=== PATIENT | male | born 1985 | race Caucasian/White ===

== ENCOUNTER 2020-09-18 18:06 | Emergency (ER) | payer OTHER ==
[2020-09-18 18:30] VITALS: TEMP 98.6; BMI 36.2
[2020-09-18] MEDS ORDERED: chlordiazePOXIDE HCL 25 MG CAPSULE PO ONE (19:04)
[2020-09-18 19:08] LABS: BASO % 0.7 % (0-2.0); EOS % 0.8 % (0-4.5); HEMATOCRIT 42.9 % (35.4-49); HEMOGLOBIN 14.5 GM/dL (11.7-16.9); LYMPH % 5.7 % (8-40); MCH 36.6 pg (25.7-33.7); MCHC 33.7 g/dl (32.0-35.9); MEAN CELL VOLUME 108.4 fl (80-96); MEAN PLT VOLUME 10.7 fl (7.5-11.1); MONO % 9.3 % (3.8-10.2); NEUT % 83.5 % (42.8-82.8); PLATELET COUNT 106 K/MM3 (134-434); RBC 3.96 M/mm3 (4.00-5.60)
[2020-09-18 19:23] LABS: EPI CELLS 15 /uL (0-25.1); HYALINE CASTS 9 /uL (0-3.1); PH,URINE 6.5 (5.0-8.0); URINE APPEARANCE CLOUDY; URINE BACTERIA 46 /uL (0-1359); URINE BILIRUBIN 1+ (NEGATIVE); URINE COLOR DK YELLOW; URINE GLUCOSE (UA) NEGATIVE (NEGATIVE); URINE KETONE 1+ (NEGATIVE); URINE LEUK ESTERASE TRACE (NEGATIVE); URINE NITRITE NEGATIVE (NEGATIVE); URINE PROTEIN 3+ (NEGATIVE); URINE RBC 13 /uL (0-23.9); URINE WBC 4 /uL (0-25.8)
[2020-09-18 19:26] LABS: CHLORIDE 106 mmol/L (98-107); POTASSIUM 3.9 mmol/L (3.5-5.1); SODIUM 137 mmol/L (136-145)
[2020-09-18 19:31] LABS: ALBUMIN 3.8 g/dl (3.4-5.0); ANION GAP 8 MMOL/L (8-16); CALCIUM 9.3 mg/dL (8.5-10.1); CO2 23 mmol/L (21-32); GLUCOSE,RANDOM 143 mg/dL (74-106); LIPASE 256 U/L (73-393)
[2020-09-18 19:32] LABS: BLOOD UREA NITROGEN 5.7 mg/dL (7-18); MAGNESIUM 2.1 mg/dL (1.8-2.4)
[2020-09-18 19:34] LABS: CREATININE 0.6 mg/dL (0.55-1.3); SGOT/AST 90 U/L (15-37); SGPT/ALT 51 U/L (13-61)
[2020-09-18 19:36] LABS: BILIRUBIN,TOTAL 2.2 mg/dL (0.2-1); TOT PROT 7.5 g/dl (6.4-8.2)
[2020-09-18 19:37] LABS: ALK PHOS 128 U/L (45-117)
[2020-09-18] MEDS ORDERED: chlordiazePOXIDE HCL 25 MG CAPSULE ONE (19:57)
[2020-09-18 20:14] LABS: ANISOCYTOSIS 1+; MACROCYTOSIS 0; PLATELET ESTIMATE DECREASED
[2020-09-18 20:44] LABS: COCAINE, UR NEGATIVE ng/ml (CUTOFF=300); URINE AMPHETAMINES NEGATIVE ng/ml (CUTOFF=500); URINE BARBITURATES NEGATIVE ng/ml (CUTOFF=200)
[2020-09-18 20:45] LABS: PHENCYCLIDINE,URINE NEGATIVE ng/ml (CUTOFF=25)
[2020-09-18 20:52] LABS: METHADONE, UR NEGATIVE ng/ml (CUTOFF=300); OPIATES, URI NEGATIVE ng/ml (CUTOFF=300); URINE BENZODIAZEPINES NEGATIVE ng/ml (CUTOFF=200)
[2020-09-18 21:33] VITALS: BP 129/86; PULSE 90
== END 2020-09-18 21:33 | disposition home or self-care (01) ==
LOC: JER 18:06
DX: F10.230 Alcohol dependence with withdrawal, uncomplicated (principal)
CPT/HCPCS: 36415; 70450-TC; 80053; 80307; 81003; 82550; 82553; 82962; 83690; 83735; 84484; 85025; 87086; 93005; 93010; 99283-25

== ENCOUNTER 2020-12-24 17:46 | Emergency (ER) | payer OTHER ==
[2020-12-24 18:13] VITALS: BMI 25.6
[2020-12-24] MEDS ORDERED: DIPHTH,PERTUSS(ACELL),TET 0.5 ML DISP.SYRIN IM ONE ×2 (20:26→20:40)
[2020-12-24 22:30] VITALS: BP 131/81; PULSE 74; TEMP 97.6
== END 2020-12-25 00:22 | disposition home or self-care (01) ==
LOC: JER 17:46
PROC: 3E0234Z Introduction of Serum, Toxoid and Vaccine into Muscle, Percutaneous Approach (ICD-10-PCS; principal; 2020-12-24)
DX: H11.32 Conjunctival hemorrhage, left eye (principal)
CPT/HCPCS: 70450-TC; 70486-TC; 72125-TC; 73030-TC-LT-FY; 73060-TC-LT-FY; 73070-TC-LT-FY; 73090-TC-LT-FY; 73130-TC-LT-FY; 90715; 99285-25

== ENCOUNTER 2021-05-09 22:56 | Emergency (ER) | payer OTHER ==
[2021-05-09 23:05] VITALS: PULSE 85; TEMP 98.7; BMI 25.6
[2021-05-10 00:30] LABS: BASO % 1.7 % (0-2.0); EOS % 1.7 % (0-4.5); HEMATOCRIT 38.4 % (35.4-49); HEMOGLOBIN 13.2 GM/dL (11.7-16.9); MCH 36.7 pg (25.7-33.7); MCHC 34.4 g/dl (32.0-35.9); MEAN CELL VOLUME 106.7 fl (80-96); MEAN PLT VOLUME 9.5 fl (7.5-11.1); MONO % 14.9 % (3.8-10.2); NEUT % 56.7 % (42.8-82.8); PLATELET COUNT 109 10^3/uL (134-434); RDW 14.9 % (11.9-15.9); WHITE BLOOD COUNT 5.3 K/mm3 (4.0-10.0)
[2021-05-10 00:37] LABS: INR 1.1 (0.83-1.09); PROTHROMBIN TIME (PATIENT) 13.3 SEC (9.7-13.0)
[2021-05-10 00:55] LABS: CALCIUM 8.6 mg/dL (8.5-10.1)
[2021-05-10 00:56] LABS: ALBUMIN 3.8 g/dl (3.4-5.0); BLOOD UREA NITROGEN 8.5 mg/dL (7-18)
[2021-05-10 01:00] LABS: CREATININE 0.5 mg/dL (0.55-1.3)
[2021-05-10] MEDS ORDERED: PANTOPRAZOLE SODIUM 40 MG VIAL IVPUSH ONE (01:00)
[2021-05-10 01:01] LABS: BILIRUBIN,TOTAL 1.1 mg/dL (0.2-1); TOT PROT 7.4 g/dl (6.4-8.2)
[2021-05-10] MEDS ORDERED: PANTOPRAZOLE SODIUM 40 MG VIAL ONE (01:04)
[2021-05-10] MEDS ORDERED: MAG HYDROX/AL HYDROX/SIMETH 30 ML UNIT-DOSE CUP PO ONE (01:16)
[2021-05-10] MEDS ORDERED: MAG HYDROX/AL HYDROX/SIMETH 30 ML UNIT-DOSE CUP ONE (01:23)
[2021-05-10] MEDS ORDERED: SUCRALFATE 1 GM TABLET (FP) PO SCH (01:30)
[2021-05-10 01:31] VITALS: BP 124/89
[2021-05-10 01:48] LABS: URINE APPEARANCE CLEAR; URINE BILIRUBIN 1+ (NEGATIVE); URINE COLOR DK YELLOW; URINE GLUCOSE (UA) NEGATIVE (NEGATIVE); URINE KETONE TRACE (NEGATIVE); URINE LEUK ESTERASE NEGATIVE (NEGATIVE); URINE NITRITE NEGATIVE (NEGATIVE); URINE PROTEIN NEGATIVE (NEGATIVE)
[2021-05-10 02:19] LABS: ANISOCYTOSIS 0; MACROCYTOSIS 1+; PLATELET ESTIMATE DECREASED
== END 2021-05-10 01:31 | disposition home or self-care (01) ==
LOC: JER 22:56
PROC: 3E033GC Introduction of Other Therapeutic Substance into Peripheral Vein, Percutaneous Approach (ICD-10-PCS; principal; 2021-05-09)
DX: K92.0 Hematemesis (principal); K92.1 Melena
CPT/HCPCS: 36415; 80053; 81003; 85025; 85610; 85730; 87086; 93005; 93010; 99285-25

== ENCOUNTER 2021-08-17 10:11 | Inpatient (IN) | payer OTHER ==
[2021-08-17] MEDS ORDERED: PANTOPRAZOLE SODIUM 40 MG VIAL IVPUSH ONE (10:35)
[2021-08-17] MEDS ORDERED: SODIUM CHLORIDE 1,000 ML IV STA (10:35)
[2021-08-17 11:12] LABS: BASO % 0.6 % (0-2.0); EOS % 0.2 % (0-4.5); HEMATOCRIT 38.4 % (35.4-49); HEMOGLOBIN 13.4 GM/dL (11.7-16.9); LYMPH % 20.6 % (8-40); MCH 37.5 pg (25.7-33.7); MCHC 34.9 g/dl (32.0-35.9); MEAN CELL VOLUME 107.7 fl (80-96); MEAN PLT VOLUME 9.7 fl (7.5-11.1); MONO % 10.6 % (3.8-10.2); PLATELET COUNT 155 10^3/uL (134-434); RBC 3.56 M/mm3 (4.00-5.60); RDW 14.3 % (11.9-15.9); WHITE BLOOD COUNT 7.5 K/mm3 (4.0-10.0)
[2021-08-17 11:20] LABS: INR 1.24 (0.83-1.09); PROTHROMBIN TIME (PATIENT) 13.9 SEC (9.7-13.0)
[2021-08-17] MEDS: PANTOPRAZOLE SODIUM 80 MG in SODIUM CHLORIDE 100 ML IVPB SCH ×2 (11:26→21:15)
[2021-08-17 11:35] LABS: ALBUMIN 3.6 g/dl (3.4-5.0); BLOOD UREA NITROGEN 16.8 mg/dL (7-18); CALCIUM 8.9 mg/dL (8.5-10.1)
[2021-08-17 11:38] LABS: CREATININE 0.6 mg/dL (0.55-1.3)
[2021-08-17 11:40] LABS: BILIRUBIN,TOTAL 1.8 mg/dL (0.2-1)
[2021-08-17] MEDS ORDERED: OCTREOTIDE ACETATE 50 MCG/1 ML - 1 ML VIAL IVPUSH ONE (11:46)
[2021-08-17 11:47] LABS: TOT PROT 7.3 g/dl (6.4-8.2)
[2021-08-17] MEDS ORDERED: CEFTRIAXONE 1,000 MG in DEXTROSE 5%-WATER - 50 ML IVPB ONE (11:47)
[2021-08-17 11:52] LABS: LACTIC ACID 3.5 mmol/L (0.4-2.0)
[2021-08-17] MEDS ORDERED: SODIUM CHLORIDE 0.9% 1000 ML INFUS.BAG IV ONE (12:03)
[2021-08-17 12:15] LABS: ANISOCYTOSIS 0; MACROCYTOSIS 0; PLATELET ESTIMATE DECREASED; TEAR DROP CELLS 1+
[2021-08-17] MEDS ORDERED: OCTREOTIDE ACETATE 100 MCG/1 ML ONE (12:22)
[2021-08-17] MEDS ORDERED: CEFTRIAXONE 1 GM/50 ML BAG ONE (12:22)
[2021-08-17] MEDS: OCTREOTIDE ACETATE 200 MCG, OCTREOTIDE ACETATE 1,000 MCG in DEXTROSE 5%-WATER - 496 ML IVPB SCH (12:36)
[2021-08-17 15:37] LABS: BASO % 0.4 % (0-2.0); EOS % 0.1 % (0-4.5); HEMATOCRIT 32.1 % (35.4-49); HEMOGLOBIN 11.2 GM/dL (11.7-16.9); LYMPH % 13.4 % (8-40); MCH 37.3 pg (25.7-33.7); MCHC 34.7 g/dl (32.0-35.9); MEAN CELL VOLUME 107.5 fl (80-96); MEAN PLT VOLUME 10.1 fl (7.5-11.1); MONO % 7.3 % (3.8-10.2); NEUT % 78.8 % (42.8-82.8); PLATELET COUNT 113 10^3/uL (134-434); RBC 2.99 M/mm3 (4.00-5.60); RDW 14.2 % (11.9-15.9)
[2021-08-17] MEDS ORDERED: ONDANSETRON 4 MG/2 ML VIAL ONE (16:18)
[2021-08-17] MEDS ORDERED: ONDANSETRON 4 MG/2 ML VIAL IVPUSH PRN (16:30)
[2021-08-17] MEDS ORDERED: LORazepam 2 MG/ML SDV VIAL IVPUSH PRN (17:17)
[2021-08-17] MEDS: LACTATED RINGERS SOLUTION 1,000 ML/1,000 ML INFUS.BAG IV SCH (19:03)
[2021-08-17 21:54] LABS: HEMATOCRIT 30.6 % (35.4-49); HEMOGLOBIN 10.8 GM/dL (11.7-16.9); MCHC 35.5 g/dl (32.0-35.9); MEAN CELL VOLUME 104.3 fl (80-96); MEAN PLT VOLUME 9.2 fl (7.5-11.1); PLATELET COUNT 111 10^3/uL (134-434); RBC 2.93 M/mm3 (4.00-5.60); RDW 13.8 % (11.9-15.9)
[2021-08-17 22:38] LABS: LACTIC ACID 2.3 mmol/L (0.4-2.0)
[2021-08-18] MEDS: PANTOPRAZOLE SODIUM 80 MG in SODIUM CHLORIDE 100 ML IVPB SCH (06:06)
[2021-08-18] MEDS: LACTATED RINGERS SOLUTION 1,000 ML/1,000 ML INFUS.BAG IV SCH ×2 (06:07→17:29)
[2021-08-18] MEDS ORDERED: cefTRIAXone SODIUM 1 GM VIAL ONE (09:06)
[2021-08-18] MEDS ORDERED: DEXTROSE 5%-WATER - 50 ML IVPB ONE (09:06)
[2021-08-18] MEDS: CEFTRIAXONE 1 GM in DEXTROSE 5%-WATER - 50 ML IVPB SCH (09:28)
[2021-08-18] MEDS ORDERED: PT OWN MED DRAWER 7, Y5N ONE (09:50)
[2021-08-18] MEDS ORDERED: FLU VACC QS2021-22(6MOS UP)/PF 60 MCG/0.5 ML SYRINGE IM ONE (10:00)
[2021-08-18] MEDS ORDERED: DEXMEDETOMIDINE HCL 200 MCG/2 ML IVPB ONE (10:11)
[2021-08-18] MEDS ORDERED: MIDAZOLAM HCL 2 MG/2 ML SINGLE DOSE VIAL ONE (10:53)
[2021-08-18] MEDS ORDERED: KETAMINE HCL 500 MG/10 ML VIAL ONE (10:54)
[2021-08-18] MEDS: OCTREOTIDE ACETATE 200 MCG, OCTREOTIDE ACETATE 1,000 MCG in DEXTROSE 5%-WATER - 496 ML IVPB SCH (12:30)
[2021-08-18 12:53] LABS: BASO % 0.7 % (0-2.0); EOS % 3.6 % (0-4.5); HEMATOCRIT 30.1 % (35.4-49); HEMOGLOBIN 10.4 GM/dL (11.7-16.9); LYMPH % 33.5 % (8-40); MCH 37.1 pg (25.7-33.7); MCHC 34.7 g/dl (32.0-35.9); MEAN CELL VOLUME 106.9 fl (80-96); MEAN PLT VOLUME 9.5 fl (7.5-11.1); MONO % 13.4 % (3.8-10.2); NEUT % 48.8 % (42.8-82.8); PLATELET COUNT 99 10^3/uL (134-434); RBC 2.82 M/mm3 (4.00-5.60); RDW 13.8 % (11.9-15.9)
[2021-08-18 13:01] LABS: INR 1.25 (0.83-1.09); PROTHROMBIN TIME (PATIENT) 14.6 SEC (9.7-13.0)
[2021-08-18 13:16] LABS: CHLORIDE 108 mmol/L (98-107); SODIUM 139 mmol/L (136-145)
[2021-08-18 13:19] LABS: ANION GAP 8 MMOL/L (8-16); BLOOD UREA NITROGEN 10.6 mg/dL (7-18); CALCIUM 7.8 mg/dL (8.5-10.1); CO2 23 mmol/L (21-32); GLUCOSE,RANDOM 105 mg/dL (74-106)
[2021-08-18 13:22] LABS: BILIRUBIN,DIRECT 0.6 mg/dL (0.0-0.2); CREATININE 0.5 mg/dL (0.55-1.3); IRON SERUM 277 ug/dL (50-175); SGPT/ALT 36 U/L (13-61); TOTAL IRON BINDING CAPACITY 279 ug/dL (250-450)
[2021-08-18 13:23] LABS: BILIRUBIN,TOTAL 2.1 mg/dL (0.2-1); SGOT/AST 55 U/L (15-37)
[2021-08-18 13:24] LABS: TOT PROT 5.6 g/dl (6.4-8.2)
[2021-08-18 13:25] LABS: ALBUMIN 2.5 g/dl (3.4-5.0); ALK PHOS 80 U/L (45-117)
[2021-08-19 06:23] LABS: BASO % 0.8 % (0-2.0); EOS % 2.5 % (0-4.5); HEMATOCRIT 32.9 % (35.4-49); HEMOGLOBIN 11.4 GM/dL (11.7-16.9); LYMPH % 17.6 % (8-40); MCH 37.4 pg (25.7-33.7); MCHC 34.8 g/dl (32.0-35.9); MEAN CELL VOLUME 107.5 fl (80-96); MEAN PLT VOLUME 9.8 fl (7.5-11.1); MONO % 9.3 % (3.8-10.2); NEUT % 69.8 % (42.8-82.8); PLATELET COUNT 105 10^3/uL (134-434); RBC 3.06 M/mm3 (4.00-5.60); RDW 13.9 % (11.9-15.9); WHITE BLOOD COUNT 5.6 K/mm3 (4.0-10.0)
[2021-08-19 06:43] LABS: ALBUMIN 2.8 g/dl (3.4-5.0); CALCIUM 8.9 mg/dL (8.5-10.1)
[2021-08-19 06:44] LABS: BLOOD UREA NITROGEN 9.8 mg/dL (7-18); MAGNESIUM 1.6 mg/dL (1.8-2.4)
[2021-08-19 06:47] LABS: CREATININE 0.6 mg/dL (0.55-1.3)
[2021-08-19 06:48] LABS: BILIRUBIN,TOTAL 1.4 mg/dL (0.2-1); TOT PROT 6.2 g/dl (6.4-8.2)
[2021-08-19] MEDS ORDERED: cefTRIAXone SODIUM 1 GM VIAL ONE (08:23)
[2021-08-19] MEDS ORDERED: DEXTROSE 5%-WATER - 50 ML IVPB ONE (08:24)
[2021-08-19] MEDS: PANTOPRAZOLE SODIUM 40 MG VIAL IVPUSH SCH (09:20)
[2021-08-19] MEDS: CEFTRIAXONE 1 GM in DEXTROSE 5%-WATER - 50 ML IVPB SCH (09:20)
[2021-08-19] MEDS: NADOLOL 20 MG TABLET (FP) PO SCH (09:20)
[2021-08-19 12:17] VITALS: BMI 28.8
[2021-08-19] MEDS ORDERED: PT OWN MED DRAWER 7, Y5N ONE ×2 (15:22→15:34)
[2021-08-20] MEDS ORDERED: MAGNESIUM OXIDE 400 MG TABLET (FP) PO ONE (09:06)
[2021-08-20] MEDS: NADOLOL 20 MG TABLET (FP) PO SCH (10:17)
[2021-08-20] MEDS: PANTOPRAZOLE SODIUM 40 MG VIAL IVPUSH SCH (10:18)
[2021-08-20 13:37] LABS: BASO % 0.4 % (0-2.0); EOS % 4.6 % (0-4.5); HEMATOCRIT 35.9 % (35.4-49); HEMOGLOBIN 12.3 GM/dL (11.7-16.9); MCH 37.1 pg (25.7-33.7); MCHC 34.4 g/dl (32.0-35.9); MEAN PLT VOLUME 9.7 fl (7.5-11.1); MONO % 12.2 % (3.8-10.2); NEUT % 64.8 % (42.8-82.8); PLATELET COUNT 153 10^3/uL (134-434); RBC 3.32 M/mm3 (4.00-5.60); RDW 14.1 % (11.9-15.9); WHITE BLOOD COUNT 7.2 K/mm3 (4.0-10.0)
[2021-08-20 13:59] LABS: BLOOD UREA NITROGEN 12.1 mg/dL (7-18); CALCIUM 8.7 mg/dL (8.5-10.1)
[2021-08-20 14:02] LABS: CREATININE 0.6 mg/dL (0.55-1.3)
[2021-08-20 14:04] LABS: BILIRUBIN,TOTAL 1.2 mg/dL (0.2-1); TOT PROT 6.7 g/dl (6.4-8.2)
[2021-08-20 15:06] LABS: ANISOCYTOSIS 1+; MACROCYTOSIS 1+; PLATELET ESTIMATE DECREASED
[2021-08-21 06:57] LABS: BASO % 1.6 % (0-2.0); EOS % 3.9 % (0-4.5); HEMATOCRIT 35.4 % (35.4-49); HEMOGLOBIN 12.6 GM/dL (11.7-16.9); LYMPH % 26.9 % (8-40); MCH 37.4 pg (25.7-33.7); MCHC 35.5 g/dl (32.0-35.9); MEAN CELL VOLUME 105.1 fl (80-96); MEAN PLT VOLUME 9.4 fl (7.5-11.1); MONO % 11.1 % (3.8-10.2); NEUT % 56.5 % (42.8-82.8); PLATELET COUNT 156 10^3/uL (134-434); RBC 3.36 M/mm3 (4.00-5.60); WHITE BLOOD COUNT 7.1 K/mm3 (4.0-10.0)
[2021-08-21 07:23] LABS: CALCIUM 8.6 mg/dL (8.5-10.1)
[2021-08-21 07:24] LABS: ALBUMIN 3.1 g/dl (3.4-5.0); BLOOD UREA NITROGEN 10.8 mg/dL (7-18); MAGNESIUM 2.1 mg/dL (1.8-2.4)
[2021-08-21 07:27] LABS: CREATININE 0.6 mg/dL (0.55-1.3)
[2021-08-21 07:28] LABS: TOT PROT 6.7 g/dl (6.4-8.2)
[2021-08-21 07:30] LABS: BILIRUBIN,TOTAL 1.4 mg/dL (0.2-1)
[2021-08-21] MEDS ORDERED: PT OWN MED DRAWER 7, Y5N ONE (09:43)
[2021-08-21] MEDS: NADOLOL 20 MG TABLET (FP) PO SCH (09:45)
[2021-08-21] MEDS: PANTOPRAZOLE SODIUM 40 MG VIAL IVPUSH SCH (09:50)
[2021-08-21 13:22] VITALS: BP 110/68; PULSE 69; TEMP 98
== END 2021-08-21 16:41 | disposition home or self-care (01) | DRG 242 ==
LOC: JER 10:11 → JERBED 16:04 → J4S 20:21 → JICU 08-18 12:31
PROVIDERS: ADMIT Internal Medicine; ATTEND Nurse Practitioner Family
PROC: 06L38CZ Occlusion of Esophageal Vein with Extraluminal Device, Via Natural or Artificial Opening Endoscopic (ICD-10-PCS; principal; 2021-08-18 10:34)
DX: I85.01 Esophageal varices with bleeding (principal); E87.2 Acidosis; K70.30 Alcoholic cirrhosis of liver without ascites; K92.0 Hematemesis; D53.9 Nutritional anemia, unspecified; F10.20 Alcohol dependence, uncomplicated; K21.9 Gastro-esophageal reflux disease without esophagitis; R74.01 Elevation of levels of liver transaminase levels; A63.0 Anogenital (venereal) warts; R63.0 Anorexia
CPT/HCPCS: 36415; 71045-TC-FY; 76700-TC; 80048; 80053; 80076; 82105; 82140; 82272; 82607; 82728; 82746; 83540; 83550; 83605; 83690; 83735; 85025; 85027; 85610; 86140; 86704; 86803; 86850; 86900; 86901; 86922; 87340; 87517; 90686; 93005; 93010; 93306-TC; 99285-25; C9803; G0008; U0003; U0005

== ENCOUNTER 2022-05-08 15:47 | Emergency (ER) | payer OTHER ==
[2022-05-08 16:13] VITALS: BP 106/67; PULSE 97; TEMP 98.2; BMI 37.8
[2022-05-08] MEDS ORDERED: methylPREDNISolone NA SUCC 125 MG/2 ML VIAL IVPUSH ONE (20:01)
[2022-05-08] MEDS ORDERED: ALBUTEROL SO4 2.5/IPRATROPIUM 0.5 INH SOL 3 ML VIAL.NEB. NEB ONE (20:07)
[2022-05-08] MEDS ORDERED: methylPREDNISolone NA SUCC 125 MG/2 ML VIAL ONE (20:07)
[2022-05-08] MEDS: ALBUTEROL SO4 2.5/IPRATROPIUM 0.5 INH SOL 3 ML VIAL.NEB. NEB SCH ×3 (20:20→20:50)
[2022-05-08 20:40] LABS: BASO % 0.8 % (0-2.0); EOS % 1.2 % (0-4.5); HEMATOCRIT 45.7 % (35.4-49); HEMOGLOBIN 15.5 GM/dL (11.7-16.9); LYMPH % 41.8 % (8-40); MCH 33.2 pg (25.7-33.7); MEAN CELL VOLUME 97.7 fl (80-96); MEAN PLT VOLUME 9.6 fl (7.5-11.1); MONO % 11.6 % (3.8-10.2); NEUT % 44.6 % (42.8-82.8); PLATELET COUNT 135 10^3/uL (134-434); RBC 4.68 M/mm3 (4.00-5.60); RDW 18.2 % (11.9-15.9); WHITE BLOOD COUNT 5.7 K/mm3 (4.0-10.0)
[2022-05-08 20:55] LABS: ALBUMIN 4.1 g/dl (3.4-5.0); CALCIUM 8.6 mg/dL (8.5-10.1)
[2022-05-08 20:58] LABS: CREATININE 0.6 mg/dL (0.55-1.3)
[2022-05-08 21:00] LABS: BILIRUBIN,TOTAL 1.2 mg/dL (0.2-1); TOT PROT 8.1 g/dl (6.4-8.2)
== END 2022-05-08 23:30 | disposition home or self-care (01) ==
LOC: JER 15:47
PROC: 3E033GC Introduction of Other Therapeutic Substance into Peripheral Vein, Percutaneous Approach (ICD-10-PCS; principal; 2022-05-08)
PROC: 3E0F7GC Introduction of Other Therapeutic Substance into Respiratory Tract, Via Natural or Artificial Opening (ICD-10-PCS; 2022-05-08)
DX: J45.20 Mild intermittent asthma, uncomplicated (principal)
CPT/HCPCS: 36415; 71046-TC-FY; 80053; 84484; 85025; 93005; 93010; 99285-25

== ENCOUNTER 2022-12-01 10:55 | Inpatient (IN) | payer OTHER ==
[2022-12-01 11:04] VITALS: BMI 27.4
[2022-12-01] MEDS ORDERED: PANTOPRAZOLE SODIUM 40 MG VIAL IVPUSH ONE (11:42)
[2022-12-01] MEDS ORDERED: CEFTRIAXONE 1,000 MG in DEXTROSE 5%-WATER - 50 ML IVPB ONE (11:43)
[2022-12-01] MEDS ORDERED: PANTOPRAZOLE SODIUM 80 MG/200 ML BAG IVPB ONE (12:14)
[2022-12-01] MEDS ORDERED: CEFTRIAXONE 1 GM/50 ML BAG ONE (12:14)
[2022-12-01] MEDS ORDERED: PANTOPRAZOLE SODIUM 40 MG VIAL ONE (12:19)
[2022-12-01] MEDS ORDERED: OCTREOTIDE ACETATE 100 MCG/1 ML ONE (12:24)
[2022-12-01 12:29] LABS: HEMATOCRIT 42.3 % (35.4-49); HEMOGLOBIN 14.5 GM/dL (11.7-16.9); LYMPH % 15.4 % (8-40); MCH 35.5 pg (25.7-33.7); MCHC 34.3 g/dl (32.0-35.9); MEAN CELL VOLUME 103.6 fl (80-96); MONO % 7.6 % (3.8-10.2); PLATELET COUNT 129 10^3/uL (134-434); RBC 4.08 M/mm3 (4.00-5.60); RDW 14.9 % (11.9-15.9); WHITE BLOOD COUNT 5.4 K/mm3 (4.0-10.0)
[2022-12-01] MEDS ORDERED: OCTREOTIDE ACETATE 200 MCG, OCTREOTIDE ACETATE 1,000 MCG in DEXTROSE 5%-WATER - 496 ML IVPB SCH (12:30)
[2022-12-01 12:52] LABS: INR 1.29 (0.83-1.09); PROTHROMBIN TIME (PATIENT) 14.9 SEC (9.7-13.0)
[2022-12-01 12:55] LABS: ACTIVATED PTT 29.8 SECONDS (25.2-36.5)
[2022-12-01 13:03] LABS: CALCIUM 8.8 mg/dL (8.5-10.1)
[2022-12-01 13:04] LABS: ALBUMIN 3.6 g/dl (3.4-5.0); MAGNESIUM 1.5 mg/dL (1.8-2.4)
[2022-12-01 13:07] LABS: CREATININE 0.6 mg/dL (0.55-1.3)
[2022-12-01 13:08] LABS: BILIRUBIN,TOTAL 1.4 mg/dL (0.2-1); TOT PROT 7.2 g/dl (6.4-8.2)
[2022-12-01 15:50] LABS: BASO % 0.7 % (0-2.0); HEMATOCRIT 40.2 % (35.4-49); HEMOGLOBIN 13.8 GM/dL (11.7-16.9); MCH 35.6 pg (25.7-33.7); MCHC 34.4 g/dl (32.0-35.9); MEAN CELL VOLUME 103.7 fl (80-96); MEAN PLT VOLUME 9.9 fl (7.5-11.1); MONO % 12.6 % (3.8-10.2); NEUT % 77.7 % (42.8-82.8); PLATELET COUNT 120 10^3/uL (134-434); RBC 3.87 M/mm3 (4.00-5.60); WHITE BLOOD COUNT 8.7 K/mm3 (4.0-10.0)
[2022-12-01] MEDS ORDERED: ONDANSETRON 4 MG/2 ML VIAL IVPUSH PRN ×2 (16:40→17:46)
[2022-12-01] MEDS ORDERED: LORazepam 2 MG/ML SDV VIAL IVPUSH PRN ×3 (16:47→16:49)
[2022-12-01] MEDS ORDERED: PANTOPRAZOLE SODIUM 80 MG in SODIUM CHLORIDE 100 ML IVPB SCH (17:00)
[2022-12-01] MEDS ORDERED: PROMETHAZINE HCL 25 MG/1 ML VIAL IVPB PRN (17:46)
[2022-12-01] MEDS ORDERED: LACTATED RINGERS SOLUTION 1,000 ML IV SCH ×2 (18:00→18:45)
[2022-12-01] MEDS: MUPIROCIN 2% TOPICAL OINTMENT FOR DECOLONIZATION NS SCH (21:29)
[2022-12-01] MEDS: THIAMINE HCL 200 MG/2 ML VIAL IVPB SCH (21:29)
[2022-12-01] MEDS: CHLORHEXIDINE GLUCONATE 4% CLEANSER FOR DECOLONIZATION TP SCH (21:30)
[2022-12-01] MEDS: PANTOPRAZOLE SODIUM 40 MG VIAL IVPUSH SCH (21:30)
[2022-12-02] MEDS: THIAMINE HCL 200 MG/2 ML VIAL IVPB SCH (05:36)
[2022-12-02 07:18] LABS: HEMATOCRIT 39.1 % (35.4-49); HEMOGLOBIN 13.5 GM/dL (11.7-16.9); MCH 35.9 pg (25.7-33.7); MCHC 34.6 g/dl (32.0-35.9); MEAN CELL VOLUME 103.7 fl (80-96); MEAN PLT VOLUME 10.3 fl (7.5-11.1); PLATELET COUNT 97 10^3/uL (134-434); RBC 3.77 M/mm3 (4.00-5.60); RDW 14.3 % (11.9-15.9); WHITE BLOOD COUNT 6.7 K/mm3 (4.0-10.0)
[2022-12-02 07:28] LABS: INR 1.33 (0.83-1.09); PROTHROMBIN TIME (PATIENT) 15.4 SEC (9.7-13.0)
[2022-12-02 07:30] LABS: ACTIVATED PTT 30.9 SECONDS (25.2-36.5)
[2022-12-02 07:37] LABS: ALBUMIN 3.3 g/dl (3.4-5.0); BLOOD UREA NITROGEN 9.6 mg/dL (7-18); MAGNESIUM 1.8 mg/dL (1.8-2.4)
[2022-12-02 07:40] LABS: CREATININE 0.6 mg/dL (0.55-1.3); PHOSPHOROUS 3.8 mg/dL (2.5-4.9)
[2022-12-02 07:42] LABS: BILIRUBIN,TOTAL 2.5 mg/dL (0.2-1); TOT PROT 6.7 g/dl (6.4-8.2)
[2022-12-02] MEDS: MUPIROCIN 2% TOPICAL OINTMENT FOR DECOLONIZATION NS SCH ×2 (09:23→23:25)
[2022-12-02] MEDS: PANTOPRAZOLE SODIUM 40 MG VIAL IVPUSH SCH (09:23)
[2022-12-02] MEDS ORDERED: CEFTRIAXONE 1 GM in DEXTROSE 5%-WATER - 50 ML IVPB SCH (10:00)
[2022-12-02] MEDS ORDERED: LORazepam 2 MG TABLET PO PRN (10:51)
[2022-12-02] MEDS ORDERED: LORazepam 1 MG TABLET PO PRN (10:52)
[2022-12-02] MEDS ORDERED: NADOLOL 20 MG TABLET (FP) PO SCH (11:00)
[2022-12-02] MEDS: NADOLOL 20 MG TABLET (FP) PO SCH (11:57)
[2022-12-02] MEDS: FOLIC ACID 5 MG/1 ML SQ SCH (11:57)
[2022-12-02] MEDS: CHLORHEXIDINE GLUCONATE 4% CLEANSER FOR DECOLONIZATION TP SCH (23:25)
[2022-12-03 09:18] LABS: HEMATOCRIT 42.7 % (35.4-49); HEMOGLOBIN 14.6 GM/dL (11.7-16.9); MCH 35.7 pg (25.7-33.7); MCHC 34.1 g/dl (32.0-35.9); MEAN CELL VOLUME 104.7 fl (80-96); MEAN PLT VOLUME 10.8 fl (7.5-11.1); PLATELET COUNT 109 10^3/uL (134-434); RBC 4.08 M/mm3 (4.00-5.60); RDW 14.4 % (11.9-15.9); WHITE BLOOD COUNT 5.1 K/mm3 (4.0-10.0)
[2022-12-03 09:56] LABS: ALBUMIN 3.4 g/dl (3.4-5.0); CALCIUM 8.9 mg/dL (8.5-10.1)
[2022-12-03 09:58] LABS: BLOOD UREA NITROGEN 8.3 mg/dL (7-18)
[2022-12-03 10:00] LABS: CREATININE 0.6 mg/dL (0.55-1.3)
[2022-12-03 10:01] LABS: BILIRUBIN,TOTAL 3.2 mg/dL (0.2-1); TOT PROT 7.1 g/dl (6.4-8.2)
[2022-12-03] MEDS: THIAMINE HCL 100 MG TABLET (FP) PO SCH (10:34)
[2022-12-03] MEDS: PANTOPRAZOLE 40 MG TABLET PO SCH (10:34)
[2022-12-03] MEDS: NADOLOL 20 MG TABLET (FP) PO SCH (10:34)
[2022-12-03] MEDS: MUPIROCIN 2% TOPICAL OINTMENT FOR DECOLONIZATION NS SCH ×2 (10:35→22:07)
[2022-12-03] MEDS: FOLIC ACID 5 MG/1 ML SQ SCH (11:43)
[2022-12-03] MEDS ORDERED: LACTATED RINGERS SOLUTION 1,000 ML/1,000 ML INFUS.BAG IV ONE (13:29)
[2022-12-03 15:25] LABS: INR 1.3 (0.83-1.09)
[2022-12-03] MEDS ORDERED: ACETAMINOPHEN 500 MG TABLET (FP) PO PRN (15:33)
[2022-12-03] MEDS: LACTATED RINGERS SOLUTION 1,000 ML/1,000 ML INFUS.BAG IV SCH (18:17)
[2022-12-03] MEDS: CHLORHEXIDINE GLUCONATE 4% CLEANSER FOR DECOLONIZATION TP SCH (22:09)
[2022-12-04] MEDS: LACTATED RINGERS SOLUTION 1,000 ML/1,000 ML INFUS.BAG IV SCH (05:26)
[2022-12-04] MEDS: FOLIC ACID 5 MG/1 ML SQ SCH (09:51)
[2022-12-04] MEDS: PANTOPRAZOLE 40 MG TABLET PO SCH (09:51)
[2022-12-04] MEDS: THIAMINE HCL 100 MG TABLET (FP) PO SCH (09:51)
[2022-12-04] MEDS: NADOLOL 20 MG TABLET (FP) PO SCH (09:54)
[2022-12-04] MEDS: MUPIROCIN 2% TOPICAL OINTMENT FOR DECOLONIZATION NS SCH (09:56)
[2022-12-04 10:06] LABS: BASO % 0.7 % (0-2.0); EOS % 2.4 % (0-4.5); HEMATOCRIT 42.4 % (35.4-49); HEMOGLOBIN 14.2 GM/dL (11.7-16.9); LYMPH % 30.8 % (8-40); MCH 35.2 pg (25.7-33.7); MCHC 33.4 g/dl (32.0-35.9); MEAN CELL VOLUME 105.2 fl (80-96); MONO % 14.3 % (3.8-10.2); NEUT % 51.8 % (42.8-82.8); PLATELET COUNT 114 10^3/uL (134-434); RBC 4.03 M/mm3 (4.00-5.60); RDW 14.5 % (11.9-15.9); WHITE BLOOD COUNT 5.6 K/mm3 (4.0-10.0)
[2022-12-04 10:11] LABS: INR 1.36 (0.83-1.09); PROTHROMBIN TIME (PATIENT) 15.7 SEC (9.7-13.0)
[2022-12-04 10:37] LABS: BLOOD UREA NITROGEN 7.3 mg/dL (7-18)
[2022-12-04 10:39] LABS: ALBUMIN 3.2 g/dl (3.4-5.0); CALCIUM 8.8 mg/dL (8.5-10.1); MAGNESIUM 1.8 mg/dL (1.8-2.4)
[2022-12-04 10:40] LABS: CREATININE 0.6 mg/dL (0.55-1.3)
[2022-12-04 10:41] LABS: TOT PROT 6.6 g/dl (6.4-8.2)
[2022-12-04 11:14] LABS: ANISOCYTOSIS 1+; MACROCYTOSIS 1+
[2022-12-04 13:56] VITALS: BP 118/81; PULSE 63; RESP 18; TEMP 98.9
== END 2022-12-04 21:17 | disposition home or self-care (01) | DRG 280 ==
LOC: JER 10:55 → JERBED 14:00 → JICU 19:21 → J6S 12-02 14:20
PROVIDERS: ADMIT Internal Medicine Pulmonary Disease; ATTEND Internal Medicine
PROC: 0DJ08ZZ Inspection of Upper Intestinal Tract, Via Natural or Artificial Opening Endoscopic (ICD-10-PCS; principal; 2022-12-01 17:56)
DX: K70.30 Alcoholic cirrhosis of liver without ascites (principal); I85.11 Secondary esophageal varices with bleeding; M62.82 Rhabdomyolysis; F10.20 Alcohol dependence, uncomplicated; F17.210 Nicotine dependence, cigarettes, uncomplicated; K70.10 Alcoholic hepatitis without ascites; K92.0 Hematemesis; K21.9 Gastro-esophageal reflux disease without esophagitis; R74.01 Elevation of levels of liver transaminase levels
CPT/HCPCS: 36415; 71045-TC-FY; 74178-TC; 76705-TC; 80048; 80053; 80076; 82272; 82550; 82553; 82607; 82728; 82746; 82962; 82977; 83540; 83550; 83615; 83690; 83735; 84100; 85025; 85027; 85610; 85730; 86705; 86708; 86803; 86850; 86900; 86901; 87340; 87517; 93005; 93010; 99285-25; C9803-CS; Q9967; U0003; U0005

== ENCOUNTER 2023-05-16 04:06 | Emergency (ER) | payer OTHER ==
[2023-05-16 04:13] VITALS: BMI 24.4
[2023-05-16 09:30] VITALS: BP 99/59; PULSE 70; RESP 14; TEMP 98
== END 2023-05-16 09:15 | disposition short-term general hospital (02) ==
LOC: JER 04:06
DX: T23.261A Burn of second degree of back of right hand, initial encounter (principal); X11.8XXA Contact with other hot tap-water, initial encounter
CPT/HCPCS: 87635; 99283-25

== ENCOUNTER 2023-07-27 01:51 | Inpatient (IN) | payer OTHER ==
[2023-07-27] MEDS ORDERED: PANTOPRAZOLE SODIUM 40 MG VIAL IVPUSH ONE (02:00)
[2023-07-27] MEDS ORDERED: OCTREOTIDE ACETATE 50 MCG/1 ML - 1 ML VIAL IVPUSH ONE (02:01)
[2023-07-27] MEDS ORDERED: ONDANSETRON 4 MG/2 ML VIAL IVPUSH ONE (02:06)
[2023-07-27] MEDS ORDERED: PANTOPRAZOLE SODIUM 40 MG VIAL ONE (02:07)
[2023-07-27] MEDS ORDERED: OCTREOTIDE ACETATE 100 MCG/1 ML ONE (02:07)
[2023-07-27] MEDS ORDERED: ONDANSETRON 4 MG/2 ML VIAL ONE (02:09)
[2023-07-27 02:36] LABS: BASO % 0.8 % (0-2.0); EOS % 0.4 % (0-4.5); HEMATOCRIT 36.6 % (35.4-49); HEMOGLOBIN 12.8 GM/dL (11.7-16.9); LYMPH % 34.8 % (8-40); MCH 35.4 pg (25.7-33.7); MCHC 34.9 g/dl (32.0-35.9); MEAN CELL VOLUME 101.3 fl (80-96); MEAN PLT VOLUME 9.7 fl (7.5-11.1); MONO % 11.5 % (3.8-10.2); NEUT % 52.5 % (42.8-82.8); PLATELET COUNT 152 10^3/uL (134-434); RBC 3.61 M/mm3 (4.00-5.60); RDW 15.9 % (11.9-15.9); WHITE BLOOD COUNT 8.3 K/mm3 (4.0-10.0)
[2023-07-27] MEDS ORDERED: SODIUM CHLORIDE 0.9% 500 ML INFUS.BAG IV ONE (02:36)
[2023-07-27 02:43] LABS: INR 1.32 (0.83-1.09); PROTHROMBIN TIME (PATIENT) 15.3 SEC (9.7-13.0)
[2023-07-27 03:06] LABS: POTASSIUM 3.7 mmol/L (3.5-5.1)
[2023-07-27 03:08] LABS: CALCIUM 8.1 mg/dL (8.5-10.1)
[2023-07-27 03:09] LABS: ALBUMIN 3.2 g/dl (3.4-5.0); BLOOD UREA NITROGEN 11.7 mg/dL (7-18)
[2023-07-27 03:12] LABS: CREATININE 0.6 mg/dL (0.55-1.3)
[2023-07-27 03:14] LABS: BILIRUBIN,TOTAL 1.4 mg/dL (0.2-1); TOT PROT 6.5 g/dl (6.4-8.2)
[2023-07-27] MEDS ORDERED: OCTREOTIDE ACETATE 200 MCG, OCTREOTIDE ACETATE 1,000 MCG in DEXTROSE 5%-WATER - 496 ML IVPB SCH (03:30)
[2023-07-27] MEDS ORDERED: METOCLOPRAMIDE HCL INJECTION 10 MG/2 ML VIAL IVPB ONE (04:22)
[2023-07-27] MEDS ORDERED: METOCLOPRAMIDE HCL INJECTION 10 MG/2 ML VIAL ONE (04:28)
[2023-07-27] MEDS ORDERED: SODIUM CHLORIDE 1,000 ML IV SCH (06:15)
[2023-07-27 06:43] LABS: HEMATOCRIT 33.7 % (35.4-49); HEMOGLOBIN 11.4 GM/dL (11.7-16.9); MCHC 33.8 g/dl (32.0-35.9); MEAN CELL VOLUME 103.5 fl (80-96); MEAN PLT VOLUME 9.6 fl (7.5-11.1); PLATELET COUNT 113 10^3/uL (134-434); RBC 3.25 M/mm3 (4.00-5.60); WHITE BLOOD COUNT 5.7 K/mm3 (4.0-10.0)
[2023-07-27 07:08] LABS: POTASSIUM 4.4 mmol/L (3.5-5.1)
[2023-07-27 07:10] LABS: BLOOD UREA NITROGEN 13.5 mg/dL (7-18); CALCIUM 7.4 mg/dL (8.5-10.1)
[2023-07-27 07:13] LABS: CREATININE 0.5 mg/dL (0.55-1.3)
[2023-07-27 07:15] LABS: BILIRUBIN,TOTAL 1.5 mg/dL (0.2-1)
[2023-07-27] MEDS ORDERED: FOLIC ACID INJECTION - 1 MG, THIAMINE HCL 100 MG, MULTIVIT INJECTION ADULT 10 ML in SOD... IVPB ONE (08:00)
[2023-07-27 09:13] LABS: HEMATOCRIT 32.2 % (35.4-49); MCH 35.4 pg (25.7-33.7); MCHC 34.1 g/dl (32.0-35.9); MEAN CELL VOLUME 103.8 fl (80-96); MEAN PLT VOLUME 9.6 fl (7.5-11.1); PLATELET COUNT 106 10^3/uL (134-434); RDW 15.4 % (11.9-15.9); WHITE BLOOD COUNT 5.3 K/mm3 (4.0-10.0)
[2023-07-27] MEDS ORDERED: MUPIROCIN 2% TOPICAL OINTMENT FOR DECOLONIZATION NS SCH (10:00)
[2023-07-27] MEDS ORDERED: PANTOPRAZOLE SODIUM 40 MG VIAL IVPUSH SCH (10:00)
[2023-07-27] MEDS ORDERED: CEFTRIAXONE 1 GM in DEXTROSE 5%-WATER - 50 ML IVPB SCH (10:00)
[2023-07-27] MEDS ORDERED: SUCCINYLCHOLINE CHLORIDE 200 MG/10 ML SYRINGE ONE (10:02)
[2023-07-27] MEDS ORDERED: PROPOFOL 40 ML ONE (10:02)
[2023-07-27] MEDS ORDERED: MIDAZOLAM HCL 2 MG/2 ML SINGLE DOSE VIAL ONE ×3 (10:02→11:10)
[2023-07-27] MEDS ORDERED: LIDOCAINE HCL/PF 2% SDV 5ML VIAL ONE (10:02)
[2023-07-27] MEDS ORDERED: FENTANYL CITRATE/PF 50 MCG/ML VIAL ONE ×2 (11:05→11:10)
[2023-07-27] MEDS ORDERED: ROCURONIUM BROMIDE 50 MG/5 ML SYRINGE ONE (11:08)
[2023-07-27 11:09] LABS: MAGNESIUM 1.7 mg/dL (1.8-2.4)
[2023-07-27 11:13] LABS: PHOSPHOROUS 2.8 mg/dL (2.5-4.9)
[2023-07-27] MEDS ORDERED: FENTANYL NS IVPB 500 MCG/100 ML BAG IVPB ONE (11:45)
[2023-07-27] MEDS: PROPOFOL 1,000,000 MCG/100 ML VIAL IVPB SCH ×2 (12:05→21:00)
[2023-07-27] MEDS: FENTANYL NS IVPB 500 MCG/100 ML BAG IVPB SCH ×3 (12:05→21:00)
[2023-07-27] MEDS: OCTREOTIDE ACETATE 200 MCG, OCTREOTIDE ACETATE 1,000 MCG in DEXTROSE 5%-WATER - 496 ML IVPB SCH (13:30)
[2023-07-27] MEDS ORDERED: LACTATED RINGERS SOLUTION 1,000 ML IV SCH (13:30)
[2023-07-27] MEDS: SODIUM CHLORIDE 1,000 ML IV SCH (14:00)
[2023-07-27 15:39] LABS: BASO % 0.4 % (0-2.0); EOS % 0.1 % (0-4.5); HEMATOCRIT 28.4 % (35.4-49); HEMOGLOBIN 9.9 GM/dL (11.7-16.9); LYMPH % 20.3 % (8-40); MCH 35.8 pg (25.7-33.7); MCHC 34.9 g/dl (32.0-35.9); MEAN CELL VOLUME 102.7 fl (80-96); MONO % 12.2 % (3.8-10.2); PLATELET COUNT 91 10^3/uL (134-434); RBC 2.76 M/mm3 (4.00-5.60); RDW 15.6 % (11.9-15.9); WHITE BLOOD COUNT 5.2 K/mm3 (4.0-10.0)
[2023-07-27] MEDS: THIAMINE HCL 200 MG/2 ML VIAL IVPB SCH (17:12)
[2023-07-27 18:58] LABS: HEMATOCRIT 28.9 % (35.4-49); HEMOGLOBIN 10.1 GM/dL (11.7-16.9); MCH 35.9 pg (25.7-33.7); MEAN CELL VOLUME 102.5 fl (80-96); PLATELET COUNT 90 10^3/uL (134-434); RBC 2.82 M/mm3 (4.00-5.60); RDW 15.8 % (11.9-15.9); WHITE BLOOD COUNT 6.2 K/mm3 (4.0-10.0)
[2023-07-27] MEDS: PANTOPRAZOLE SODIUM 40 MG VIAL IVPUSH SCH (21:00)
[2023-07-27] MEDS: MUPIROCIN 2% TOPICAL OINTMENT FOR DECOLONIZATION NS SCH (21:00)
[2023-07-27] MEDS: CHLORHEXIDINE GLUCONATE 4% CLEANSER FOR DECOLONIZATION TP SCH (21:00)
[2023-07-27] MEDS ORDERED: CHLORHEXIDINE GLUCONATE 4% CLEANSER FOR DECOLONIZATION TP SCH (22:00)
[2023-07-28] MEDS: FENTANYL NS IVPB 500 MCG/100 ML BAG IVPB SCH ×2 (00:30→04:00)
[2023-07-28] MEDS: PROPOFOL 1,000,000 MCG/100 ML VIAL IVPB SCH ×2 (01:00→05:09)
[2023-07-28] MEDS: THIAMINE HCL 200 MG/2 ML VIAL IVPB SCH ×3 (03:00→17:01)
[2023-07-28] MEDS: SODIUM CHLORIDE 1,000 ML IV SCH (06:08)
[2023-07-28 07:20] LABS: BASO % 0.6 % (0-2.0); EOS % 0.9 % (0-4.5); HEMOGLOBIN 9.1 GM/dL (11.7-16.9); LYMPH % 34.5 % (8-40); MCH 35.6 pg (25.7-33.7); MCHC 33.9 g/dl (32.0-35.9); MEAN CELL VOLUME 105.2 fl (80-96); MEAN PLT VOLUME 10.2 fl (7.5-11.1); MONO % 13.2 % (3.8-10.2); NEUT % 50.8 % (42.8-82.8); PLATELET COUNT 80 10^3/uL (134-434); RBC 2.56 M/mm3 (4.00-5.60); RDW 16.1 % (11.9-15.9); WHITE BLOOD COUNT 4.3 K/mm3 (4.0-10.0)
[2023-07-28 07:34] LABS: INR 1.39 (0.83-1.09); PROTHROMBIN TIME (PATIENT) 16.1 SEC (9.7-13.0)
[2023-07-28 07:36] LABS: ACTIVATED PTT 30.8 SECONDS (25.2-36.5)
[2023-07-28 07:40] LABS: CHLORIDE 115 mmol/L (98-107); SODIUM 146 mmol/L (136-145)
[2023-07-28 07:42] LABS: ALBUMIN 2.4 g/dl (3.4-5.0); ANION GAP 2 MMOL/L (8-16); BLOOD UREA NITROGEN 14.6 mg/dL (7-18); CO2 29 mmol/L (21-32); GLUCOSE,RANDOM 111 mg/dL (74-106); MAGNESIUM 1.9 mg/dL (1.8-2.4)
[2023-07-28 07:45] LABS: CREATININE 0.6 mg/dL (0.55-1.3); PHOSPHOROUS 2.6 mg/dL (2.5-4.9); SGOT/AST 77 U/L (15-37); SGPT/ALT 46 U/L (13-61)
[2023-07-28 07:47] LABS: BILIRUBIN,TOTAL 0.8 mg/dL (0.2-1); TOT PROT 4.9 g/dl (6.4-8.2)
[2023-07-28 07:48] LABS: ALK PHOS 70 U/L (45-117)
[2023-07-28 07:49] LABS: CALCIUM 6.7 mg/dL (8.5-10.1)
[2023-07-28 08:16] LABS: PH,URINE 6.5 (5.0-8.0); URINE APPEARANCE Clear; URINE BILIRUBIN Negative (NEGATIVE); URINE COLOR Yellow; URINE GLUCOSE (UA) Negative (NEGATIVE); URINE KETONE 1+ (NEGATIVE); URINE LEUK ESTERASE Negative (NEGATIVE); URINE NITRITE Positive (NEGATIVE); URINE PROTEIN 1+ (NEGATIVE); URINE UROBILINOGEN 0.2 mg/dL (0.2-1.0)
[2023-07-28 08:38] LABS: EPI CELLS 16 /uL (0-25.1); HYALINE CASTS 4 /uL (0-3.1); URINE BACTERIA 6 /uL (0-1359); URINE RBC 22 /uL (0-23.9); URINE WBC 5 /uL (0-25.8)
[2023-07-28 08:44] LABS: ANISOCYTOSIS 1+; MACROCYTOSIS 2+
[2023-07-28] MEDS: OCTREOTIDE ACETATE 200 MCG, OCTREOTIDE ACETATE 1,000 MCG in DEXTROSE 5%-WATER - 496 ML IVPB SCH ×2 (09:00→17:02)
[2023-07-28] MEDS ORDERED: FOLIC ACID 5 MG/1 ML SQ SCH (10:00)
[2023-07-28] MEDS: MUPIROCIN 2% TOPICAL OINTMENT FOR DECOLONIZATION NS SCH ×2 (10:55→21:01)
[2023-07-28] MEDS: PANTOPRAZOLE SODIUM 40 MG VIAL IVPUSH SCH ×2 (10:55→21:01)
[2023-07-28] MEDS: CEFTRIAXONE 1 GM in DEXTROSE 5%-WATER - 50 ML IVPB SCH (10:55)
[2023-07-28] MEDS: FOLIC ACID 5 MG/1 ML IVPB SCH (10:55)
[2023-07-28 12:01] LABS: BASO % 0.5 % (0-2.0); EOS % 1.2 % (0-4.5); HEMATOCRIT 29.5 % (35.4-49); HEMOGLOBIN 10.1 GM/dL (11.7-16.9); LYMPH % 34.7 % (8-40); MCH 35.4 pg (25.7-33.7); MCHC 34.1 g/dl (32.0-35.9); MEAN CELL VOLUME 103.7 fl (80-96); MEAN PLT VOLUME 10.2 fl (7.5-11.1); MONO % 9.7 % (3.8-10.2); NEUT % 53.9 % (42.8-82.8); PLATELET COUNT 89 10^3/uL (134-434); RBC 2.85 M/mm3 (4.00-5.60); RDW 15.9 % (11.9-15.9); WHITE BLOOD COUNT 5.9 K/mm3 (4.0-10.0)
[2023-07-28 17:16] LABS: HEMOGLOBIN 10.2 GM/dL (11.7-16.9); MCH 35.5 pg (25.7-33.7); MCHC 34.1 g/dl (32.0-35.9); MEAN CELL VOLUME 103.9 fl (80-96); MEAN PLT VOLUME 9.6 fl (7.5-11.1); PLATELET COUNT 78 10^3/uL (134-434); RBC 2.88 M/mm3 (4.00-5.60); RDW 15.9 % (11.9-15.9); WHITE BLOOD COUNT 7.5 K/mm3 (4.0-10.0)
[2023-07-28] MEDS: CHLORHEXIDINE GLUCONATE 4% CLEANSER FOR DECOLONIZATION TP SCH (21:02)
[2023-07-28 21:37] LABS: ANISOCYTOSIS 1+; MACROCYTOSIS 1+; PLATELET ESTIMATE NORMAL
[2023-07-29] MEDS: THIAMINE HCL 200 MG/2 ML VIAL IVPB SCH ×2 (01:08→09:17)
[2023-07-29 06:40] LABS: BASO % 0.2 % (0-2.0); EOS % 1.8 % (0-4.5); HEMATOCRIT 29.1 % (35.4-49); HEMOGLOBIN 9.7 GM/dL (11.7-16.9); LYMPH % 22.1 % (8-40); MCH 35.3 pg (25.7-33.7); MCHC 33.4 g/dl (32.0-35.9); MEAN CELL VOLUME 105.7 fl (80-96); MEAN PLT VOLUME 9.8 fl (7.5-11.1); MONO % 8.5 % (3.8-10.2); NEUT % 67.4 % (42.8-82.8); PLATELET COUNT 77 10^3/uL (134-434); RBC 2.75 M/mm3 (4.00-5.60); RDW 15.1 % (11.9-15.9); WHITE BLOOD COUNT 6.2 K/mm3 (4.0-10.0)
[2023-07-29 06:58] LABS: POTASSIUM 3.6 mmol/L (3.5-5.1)
[2023-07-29 07:00] LABS: CALCIUM 7.2 mg/dL (8.5-10.1)
[2023-07-29 07:01] LABS: ALBUMIN 2.6 g/dl (3.4-5.0); BLOOD UREA NITROGEN 7.6 mg/dL (7-18)
[2023-07-29 07:04] LABS: CREATININE 0.5 mg/dL (0.55-1.3); PHOSPHOROUS 2.4 mg/dL (2.5-4.9)
[2023-07-29 07:05] LABS: BILIRUBIN,TOTAL 1.8 mg/dL (0.2-1); TOT PROT 5.4 g/dl (6.4-8.2)
[2023-07-29] MEDS: NADOLOL 20 MG TABLET (FP) PO SCH (09:16)
[2023-07-29] MEDS: FOLIC ACID 5 MG/1 ML IVPB SCH (09:16)
[2023-07-29] MEDS: CEFTRIAXONE 1 GM in DEXTROSE 5%-WATER - 50 ML IVPB SCH (09:17)
[2023-07-29] MEDS ORDERED: PANTOPRAZOLE 40 MG TABLET PO SCH (10:00)
[2023-07-29] MEDS ORDERED: FOLIC ACID 1 MG TABLET (FP) PO SCH (10:00)
[2023-07-29] MEDS: MUPIROCIN 2% TOPICAL OINTMENT FOR DECOLONIZATION NS SCH ×2 (10:19→21:37)
[2023-07-29 13:04] LABS: HEMATOCRIT 29.4 % (35.4-49); HEMOGLOBIN 9.9 GM/dL (11.7-16.9); MCH 35.4 pg (25.7-33.7); MCHC 33.5 g/dl (32.0-35.9); MEAN CELL VOLUME 105.5 fl (80-96); MEAN PLT VOLUME 9.8 fl (7.5-11.1); PLATELET COUNT 83 10^3/uL (134-434); RBC 2.79 M/mm3 (4.00-5.60); RDW 15.5 % (11.9-15.9); WHITE BLOOD COUNT 5.6 K/mm3 (4.0-10.0)
[2023-07-29] MEDS: OCTREOTIDE ACETATE 200 MCG, OCTREOTIDE ACETATE 1,000 MCG in DEXTROSE 5%-WATER - 496 ML IVPB SCH (13:18)
[2023-07-29 14:16] VITALS: BMI 29.5
[2023-07-29] MEDS ORDERED: OCTREOTIDE ACETATE 200 MCG, OCTREOTIDE ACETATE 1,000 MCG in DEXTROSE 5%-WATER - 496 ML IVPB SCH (16:00)
[2023-07-29 20:50] LABS: HEMATOCRIT 29.9 % (35.4-49); HEMOGLOBIN 10.3 GM/dL (11.7-16.9); MCH 36.2 pg (25.7-33.7); MEAN CELL VOLUME 104.4 fl (80-96); RBC 2.86 M/mm3 (4.00-5.60); WHITE BLOOD COUNT 4.7 K/mm3 (4.0-10.0)
[2023-07-29 20:51] LABS: MCHC 34.6 g/dl (32.0-35.9); MEAN PLT VOLUME 10.5 fl (7.5-11.1); PLATELET COUNT 80 10^3/uL (134-434); RDW 15.7 % (11.9-15.9)
[2023-07-29] MEDS: PANTOPRAZOLE 40 MG TABLET PO SCH (21:37)
[2023-07-29] MEDS: CHLORHEXIDINE GLUCONATE 4% CLEANSER FOR DECOLONIZATION TP SCH (21:37)
[2023-07-30] MEDS: MUPIROCIN 2% TOPICAL OINTMENT FOR DECOLONIZATION NS SCH ×2 (09:07→21:04)
[2023-07-30] MEDS: FOLIC ACID 1 MG TABLET (FP) PO SCH (09:07)
[2023-07-30] MEDS: PANTOPRAZOLE 40 MG TABLET PO SCH ×2 (09:07→21:04)
[2023-07-30] MEDS: NADOLOL 20 MG TABLET (FP) PO SCH (09:07)
[2023-07-30] MEDS: THIAMINE HCL 100 MG TABLET (FP) PO SCH (09:07)
[2023-07-30] MEDS: CHLORHEXIDINE GLUCONATE 4% CLEANSER FOR DECOLONIZATION TP SCH (21:05)
[2023-07-31 07:22] LABS: HEMATOCRIT 32.2 % (35.4-49); HEMOGLOBIN 11.4 GM/dL (11.7-16.9); MCH 36.9 pg (25.7-33.7); MCHC 35.3 g/dl (32.0-35.9); MEAN CELL VOLUME 104.5 fl (80-96); MEAN PLT VOLUME 9.5 fl (7.5-11.1); PLATELET COUNT 109 10^3/uL (134-434); RBC 3.08 M/mm3 (4.00-5.60); RDW 15.1 % (11.9-15.9); WHITE BLOOD COUNT 6.7 K/mm3 (4.0-10.0)
[2023-07-31 08:20] LABS: POTASSIUM 3.8 mmol/L (3.5-5.1)
[2023-07-31 08:45] LABS: BLOOD UREA NITROGEN 5.8 mg/dL (7-18)
[2023-07-31 08:46] LABS: CREATININE 0.5 mg/dL (0.55-1.3)
[2023-07-31] MEDS: PANTOPRAZOLE 40 MG TABLET PO SCH (09:30)
[2023-07-31] MEDS: FOLIC ACID 1 MG TABLET (FP) PO SCH (09:30)
[2023-07-31] MEDS: THIAMINE HCL 100 MG TABLET (FP) PO SCH (09:30)
[2023-07-31] MEDS: MUPIROCIN 2% TOPICAL OINTMENT FOR DECOLONIZATION NS SCH (09:35)
[2023-07-31] MEDS: NADOLOL 20 MG TABLET (FP) PO SCH (09:37)
[2023-07-31 14:31] VITALS: BP 105/57; PULSE 51; RESP 16; TEMP 98.6
[2023-07-31] MEDS ORDERED: PANTOPRAZOLE 40 MG TABLET PO SCH (22:00)
[2023-07-31] MEDS ORDERED: CHLORHEXIDINE GLUCONATE 4% CLEANSER FOR DECOLONIZATION TP SCH (22:00)
[2023-07-31] MEDS ORDERED: MUPIROCIN 2% TOPICAL OINTMENT FOR DECOLONIZATION NS SCH (22:00)
[2023-08-01] MEDS ORDERED: NADOLOL 20 MG TABLET (FP) PO SCH (10:00)
[2023-08-01] MEDS ORDERED: THIAMINE HCL 100 MG TABLET (FP) PO SCH (10:00)
== END 2023-07-31 15:52 | disposition home or self-care (01) | DRG 242 ==
LOC: JER 01:51 → JERBED 04:25 → J8W 06:51 → JICU 12:05 → J5S 07-31 10:33
PROVIDERS: ADMIT Internal Medicine; ATTEND Internal Medicine
PROC: 0BH17EZ Insertion of Endotracheal Airway into Trachea, Via Natural or Artificial Opening (ICD-10-PCS; 2023-07-27)
PROC: 5A1935Z Respiratory Ventilation, Less than 24 Consecutive Hours (ICD-10-PCS; 2023-07-27)
PROC: 06L38CZ Occlusion of Esophageal Vein with Extraluminal Device, Via Natural or Artificial Opening Endoscopic (ICD-10-PCS; principal; 2023-07-27 10:30)
DX: I85.01 Esophageal varices with bleeding (principal); K21.9 Gastro-esophageal reflux disease without esophagitis; K76.6 Portal hypertension; K70.30 Alcoholic cirrhosis of liver without ascites; F10.10 Alcohol abuse, uncomplicated; D62 Acute posthemorrhagic anemia; D69.6 Thrombocytopenia, unspecified; R94.31 Abnormal electrocardiogram [ECG] [EKG]
CPT/HCPCS: 36415; 71045-TC-FY; 71260-TC; 74177-TC; 80048; 80053; 80307; 81003; 82272; 83735; 84100; 85025; 85027; 85610; 85730; 87635; 93005; 93010; 93976; 94002; 94760; 97116-GP; 97162-GP; 99285-25; Q9967

== ENCOUNTER 2023-12-30 23:12 | Inpatient (IN) | payer OTHER ==
[2023-12-30 23:18] VITALS: BMI 25.8
[2023-12-30 23:49] LABS: BASO % 1.2 % (0-2.0); EOS % 0.4 % (0-4.5); HEMATOCRIT 32.3 % (35.4-49); HEMOGLOBIN 10.5 GM/dL (11.7-16.9); LYMPH % 29.4 % (8-40); MCH 29.1 pg (25.7-33.7); MCHC 32.6 g/dl (32.0-35.9); MEAN CELL VOLUME 89.1 fl (80-96); MEAN PLT VOLUME 8.7 fl (7.5-11.1); MONO % 12.7 % (3.8-10.2); NEUT % 56.3 % (42.8-82.8); PLATELET COUNT 140 10^3/uL (134-434); RBC 3.62 M/mm3 (4.00-5.60); RDW 18.9 % (11.9-15.9); WHITE BLOOD COUNT 5.2 K/mm3 (4.0-10.0)
[2023-12-30] MEDS ORDERED: ONDANSETRON 4 MG/2 ML VIAL ONE (23:50)
[2023-12-30] MEDS ORDERED: PANTOPRAZOLE SODIUM 40 MG/100 ML BAG IVPB ONE (23:50)
[2023-12-30 23:55] LABS: INR 1.32 (0.83-1.09); PROTHROMBIN TIME (PATIENT) 15.3 SEC (9.7-13.0)
[2023-12-30 23:59] LABS: ACTIVATED PTT 32.8 SECONDS (25.2-36.5)
[2023-12-31] MEDS: ONDANSETRON 4 MG/2 ML VIAL IVPUSH ONE (00:02)
[2023-12-31] MEDS: SODIUM CHLORIDE 1,000 ML IV STA (00:02)
[2023-12-31] MEDS: PANTOPRAZOLE SODIUM 40 MG in SODIUM CHLORIDE 100 ML IVPB ONE (00:02)
[2023-12-31 00:10] LABS: POTASSIUM 3.9 mmol/L (3.5-5.1)
[2023-12-31 00:11] LABS: CALCIUM 8.2 mg/dL (8.5-10.1)
[2023-12-31 00:12] LABS: ALBUMIN 3.3 g/dl (3.4-5.0)
[2023-12-31 00:13] LABS: BLOOD UREA NITROGEN 11.5 mg/dL (7-18)
[2023-12-31 00:15] LABS: CREATININE 0.6 mg/dL (0.55-1.3)
[2023-12-31 00:16] LABS: BILIRUBIN,TOTAL 1.2 mg/dL (0.2-1); TOT PROT 7.2 g/dl (6.4-8.2)
[2023-12-31] MEDS ORDERED: morphine SULFATE 4 MG/ML VIAL ONE ×2 (00:33→02:00)
[2023-12-31 00:38] LABS: LACTIC ACID 3.1 mmol/L (0.4-2.0)
[2023-12-31] MEDS: morphine CARPU-JECT 4 MG/1 ML DISP.SYRIN IVPUSH ONE ×2 (00:47→02:14)
[2023-12-31] MEDS: OCTREOTIDE ACETATE 200 MCG, OCTREOTIDE ACETATE 1,000 MCG in DEXTROSE 5%-WATER - 496 ML IVPB SCH (01:40)
[2023-12-31] MEDS ORDERED: PIPERACILLIN/TAZOB 4.5 GM 4.5 GM/100 ML BAG IVPB ONE (02:56)
[2023-12-31] MEDS: PIPERACILLIN/TAZOB 4.5 GM 4.5 GM in DEXTROSE 5%-WATER 100 ML IVPB ONE (03:09)
[2023-12-31 03:20] LABS: BASO % 0.7 % (0-2.0); EOS % 0.2 % (0-4.5); HEMATOCRIT 28.9 % (35.4-49); HEMOGLOBIN 9.4 GM/dL (11.7-16.9); LYMPH % 25.3 % (8-40); MCHC 32.7 g/dl (32.0-35.9); MEAN CELL VOLUME 88.5 fl (80-96); MEAN PLT VOLUME 8.9 fl (7.5-11.1); MONO % 12.7 % (3.8-10.2); NEUT % 61.1 % (42.8-82.8); PLATELET COUNT 117 10^3/uL (134-434); RBC 3.26 M/mm3 (4.00-5.60); RDW 18.7 % (11.9-15.9); WHITE BLOOD COUNT 4.7 K/mm3 (4.0-10.0)
[2023-12-31] MEDS ORDERED: LORazepam 1 MG TABLET PO PRN (05:40)
[2023-12-31] MEDS ORDERED: ONDANSETRON 4 MG/2 ML VIAL IVPUSH PRN (05:41)
[2023-12-31] MEDS ORDERED: LORazepam 1 MG TABLET ONE ×2 (05:59→10:46)
[2023-12-31] MEDS: SODIUM CHLORIDE 1,000 ML IV SCH ×2 (06:06→14:47)
[2023-12-31] MEDS: LORazepam 1 MG TABLET PO SCH (06:06)
[2023-12-31] MEDS: PIPERACILLIN/TAZOB 3.375 GM 3.375 GM in DEXTROSE 5%-WATER - 50 ML IVPB SCH ×2 (06:17→09:53)
[2023-12-31] MEDS: FOLIC ACID INJECTION - 1 MG, THIAMINE HCL 100 MG, MULTIVIT INJECTION ADULT 10 ML in SOD... IVPB ONE (06:33)
[2023-12-31 08:39] LABS: BASO % 0.8 % (0-2.0); EOS % 0.2 % (0-4.5); HEMATOCRIT 28.9 % (35.4-49); HEMOGLOBIN 9.5 GM/dL (11.7-16.9); LYMPH % 25.8 % (8-40); MCH 29.2 pg (25.7-33.7); MCHC 32.8 g/dl (32.0-35.9); MEAN PLT VOLUME 9.2 fl (7.5-11.1); MONO % 15.2 % (3.8-10.2); PLATELET COUNT 108 10^3/uL (134-434); RBC 3.24 M/mm3 (4.00-5.60)
[2023-12-31 08:46] LABS: INR 1.41 (0.83-1.09); PROTHROMBIN TIME (PATIENT) 16.3 SEC (9.7-13.0)
[2023-12-31 08:59] LABS: POTASSIUM 4.1 mmol/L (3.5-5.1)
[2023-12-31 09:04] LABS: BLOOD UREA NITROGEN 9.7 mg/dL (7-18); CALCIUM 7.7 mg/dL (8.5-10.1)
[2023-12-31 09:05] LABS: ALBUMIN 3.1 g/dl (3.4-5.0); MAGNESIUM 1.8 mg/dL (1.8-2.4)
[2023-12-31 09:06] LABS: CREATININE 0.5 mg/dL (0.55-1.3)
[2023-12-31 09:08] LABS: PHOSPHOROUS 3.8 mg/dL (2.5-4.9)
[2023-12-31 09:10] LABS: TOT PROT 6.4 g/dl (6.4-8.2)
[2023-12-31 09:12] LABS: BILIRUBIN,TOTAL 1.1 mg/dL (0.2-1)
[2023-12-31] MEDS ORDERED: PIPERACILLIN/TAZOB 3.375 GM 3.375 GM/50 ML BAG IVPB ONE (09:48)
[2023-12-31] MEDS ORDERED: FOLIC ACID 1 MG TABLET (FP) ONE (10:46)
[2023-12-31] MEDS ORDERED: THIAMINE HCL 100 MG TABLET (FP) ONE (10:46)
[2023-12-31] MEDS: FOLIC ACID 1 MG TABLET (FP) PO SCH (11:01)
[2023-12-31] MEDS: THIAMINE HCL 100 MG TABLET (FP) PO SCH (11:01)
[2023-12-31] MEDS ORDERED: PHYTONADIONE 10 MG/1 ML AMP ONE (12:30)
[2023-12-31] MEDS: PHYTONADIONE 10 MG/1 ML AMP IVPB ONE (12:40)
[2023-12-31 13:30] LABS: BILIRUBIN,DIRECT 0.5 mg/dL (0.0-0.2)
[2023-12-31] MEDS ORDERED: ACETAMINOPHEN 500 MG TABLET (FP) ONE (14:07)
[2023-12-31] MEDS: ACETAMINOPHEN 500 MG TABLET (FP) PO ONE ×2 (14:10→18:57)
[2023-12-31] MEDS ORDERED: LACTULOSE 20 GM/30 ML UDC (FOR ORAL USE ONLY) PO PRN (14:23)
[2023-12-31 18:04] LABS: BASO % 0.9 % (0-2.0); EOS % 0.4 % (0-4.5); HEMATOCRIT 24.5 % (35.4-49); HEMOGLOBIN 7.8 GM/dL (11.7-16.9); MCH 28.8 pg (25.7-33.7); MCHC 31.7 g/dl (32.0-35.9); MEAN CELL VOLUME 90.6 fl (80-96); MEAN PLT VOLUME 9.3 fl (7.5-11.1); MONO % 16.3 % (3.8-10.2); NEUT % 56.4 % (42.8-82.8); PLATELET COUNT 89 10^3/uL (134-434); RDW 18.6 % (11.9-15.9); WHITE BLOOD COUNT 4.1 K/mm3 (4.0-10.0)
[2023-12-31 18:26] LABS: ACTIVATED PTT 34.7 SECONDS (25.2-36.5); INR 1.42 (0.83-1.09); PROTHROMBIN TIME (PATIENT) 16.4 SEC (9.7-13.0)
[2023-12-31] MEDS: PANTOPRAZOLE SODIUM 40 MG VIAL IVPUSH SCH (21:39)
[2024-01-01 02:17] LABS: EPI CELLS 8 /uL (0-25.1); HYALINE CASTS 0 /uL (0-3.1); URINE APPEARANCE CLEAR; URINE BACTERIA 5 /uL (0-1359); URINE BILIRUBIN NEGATIVE (NEGATIVE); URINE COLOR DK YELLOW; URINE GLUCOSE (UA) NEGATIVE (NEGATIVE); URINE KETONE 1+ (NEGATIVE); URINE LEUK ESTERASE NEGATIVE (NEGATIVE); URINE NITRITE NEGATIVE (NEGATIVE); URINE PROTEIN 1+ (NEGATIVE); URINE RBC 26 /uL (0-23.9); URINE WBC 6 /uL (0-25.8)
[2024-01-01 02:43] LABS: COCAINE, UR POSITIVE (NEGATIVE); METHADONE, UR NEGATIVE (NEGATIVE); OPIATES, URI POSITIVE (NEGATIVE); PHENCYCLIDINE,URINE NEGATIVE (NEGATIVE); URINE AMPHETAMINES NEGATIVE (NEGATIVE); URINE BARBITURATES NEGATIVE (NEGATIVE); URINE BENZODIAZEPINES NEGATIVE (NEGATIVE)
[2024-01-01] MEDS: LORazepam 1 MG TABLET PO SCH (05:49)
[2024-01-01] MEDS: PANTOPRAZOLE SODIUM 40 MG VIAL IVPUSH SCH (07:21)
[2024-01-01] MEDS: PANTOPRAZOLE SODIUM 160 MG in SODIUM CHLORIDE 290 ML IVPB SCH ×2 (07:24→14:13)
[2024-01-01 09:24] LABS: BASO % 0.7 % (0-2.0); EOS % 1.3 % (0-4.5); HEMATOCRIT 26.6 % (35.4-49); HEMOGLOBIN 8.9 GM/dL (11.7-16.9); LYMPH % 33.4 % (8-40); MCH 29.7 pg (25.7-33.7); MCHC 33.4 g/dl (32.0-35.9); MEAN CELL VOLUME 88.9 fl (80-96); MEAN PLT VOLUME 8.7 fl (7.5-11.1); MONO % 15.5 % (3.8-10.2); NEUT % 49.1 % (42.8-82.8); PLATELET COUNT 65 10^3/uL (134-434); RBC 2.99 M/mm3 (4.00-5.60); RDW 17.2 % (11.9-15.9); WHITE BLOOD COUNT 3.4 K/mm3 (4.0-10.0)
[2024-01-01 09:32] LABS: INR 1.42 (0.83-1.09); PROTHROMBIN TIME (PATIENT) 16.4 SEC (9.7-13.0)
[2024-01-01 09:35] LABS: ACTIVATED PTT 32.8 SECONDS (25.2-36.5)
[2024-01-01 09:46] LABS: POTASSIUM 3.8 mmol/L (3.5-5.1)
[2024-01-01 09:53] LABS: ALBUMIN 2.6 g/dl (3.4-5.0); BLOOD UREA NITROGEN 10.2 mg/dL (7-18); CALCIUM 7.5 mg/dL (8.5-10.1); MAGNESIUM 1.7 mg/dL (1.8-2.4)
[2024-01-01 09:55] LABS: CREATININE 0.6 mg/dL (0.55-1.3); PHOSPHOROUS 2.2 mg/dL (2.5-4.9)
[2024-01-01 09:58] LABS: BILIRUBIN,TOTAL 2.9 mg/dL (0.2-1); TOT PROT 5.3 g/dl (6.4-8.2)
[2024-01-01] MEDS: LACTATED RINGERS SOLUTION 1,000 ML/1,000 ML INFUS.BAG IV STA (10:00)
[2024-01-01] MEDS ORDERED: NADOLOL 20 MG TABLET (FP) PO SCH (10:00)
[2024-01-01] MEDS: CEFTRIAXONE 1 GM in DEXTROSE 5%-WATER - 50 ML IVPB SCH (10:01)
[2024-01-01] MEDS: PIPERACILLIN/TAZOB 3.375 GM 3.375 GM in DEXTROSE 5%-WATER - 50 ML IVPB SCH (10:08)
[2024-01-01] MEDS: SODIUM CHLORIDE 1,000 ML IV SCH ×2 (11:40→14:10)
[2024-01-01] MEDS: MAGNESIUM OXIDE 400 MG TABLET (FP) PO ONE (11:40)
[2024-01-01] MEDS ORDERED: ACETAMINOPHEN 1000 MG/100 ML BAG IVPB PRN (12:58)
[2024-01-01] MEDS ORDERED: FENTANYL IVPB 500 MCG/100 ML BAG IVPB SCH (13:00)
[2024-01-01 13:28] LABS: HEMOGLOBIN 9.3 GM/dL (11.7-16.9); MCH 29.6 pg (25.7-33.7); MEAN CELL VOLUME 89.8 fl (80-96); MEAN PLT VOLUME 9.4 fl (7.5-11.1); PLATELET COUNT 73 10^3/uL (134-434); RBC 3.12 M/mm3 (4.00-5.60); RDW 17.7 % (11.9-15.9); WHITE BLOOD COUNT 5.6 K/mm3 (4.0-10.0)
[2024-01-01] MEDS ORDERED: LACTULOSE 20 GM/30 ML UDC (FOR ORAL USE ONLY) PO PRN (13:28)
[2024-01-01] MEDS: MAGNESIUM 1GM/D5W 100ML - 100 ML IVPB IVPB ONE ×2 (13:41→14:14)
[2024-01-01] MEDS: PROPOFOL 1,000,000 MCG/100 ML VIAL IVPB SCH (13:41)
[2024-01-01 13:48] LABS: ACTIVATED PTT 32.4 SECONDS (25.2-36.5); INR 1.38 (0.83-1.09); PROTHROMBIN TIME (PATIENT) 15.9 SEC (9.7-13.0)
[2024-01-01] MEDS: OCTREOTIDE ACETATE 200 MCG, OCTREOTIDE ACETATE 1,000 MCG in DEXTROSE 5%-WATER - 496 ML IVPB SCH ×2 (14:11→14:13)
[2024-01-01] MEDS: LACTATED RINGERS SOLUTION 1,000 ML IV SCH (14:14)
[2024-01-01] MEDS: FENTANYL NS IVPB 500 MCG/100 ML BAG IVPB SCH (14:25)
[2024-01-01] MEDS: MEROPENEM 1 GM in DEXTROSE 5%-WATER 100 ML IVPB SCH (17:10)
[2024-01-01 18:25] LABS: HEMATOCRIT 27.6 % (35.4-49); HEMOGLOBIN 8.8 GM/dL (11.7-16.9); MCH 28.9 pg (25.7-33.7); MEAN CELL VOLUME 90.4 fl (80-96); MEAN PLT VOLUME 9.4 fl (7.5-11.1); PLATELET COUNT 68 10^3/uL (134-434); RBC 3.06 M/mm3 (4.00-5.60); RDW 17.5 % (11.9-15.9); WHITE BLOOD COUNT 3.7 K/mm3 (4.0-10.0)
[2024-01-01] MEDS: MUPIROCIN 2% TOPICAL OINTMENT FOR DECOLONIZATION NS SCH (21:29)
[2024-01-01] MEDS: CHLORHEXIDINE GLUCONATE 4% CLEANSER FOR DECOLONIZATION TP SCH (21:29)
[2024-01-01 22:07] LABS: BASO % 0.1 % (0-2.0); HEMATOCRIT 27.4 % (35.4-49); LYMPH % 10.2 % (8-40); MCH 29.3 pg (25.7-33.7); MCHC 32.8 g/dl (32.0-35.9); MEAN CELL VOLUME 89.4 fl (80-96); MEAN PLT VOLUME 9.2 fl (7.5-11.1); MONO % 3.9 % (3.8-10.2); NEUT % 85.8 % (42.8-82.8); PLATELET COUNT 70 10^3/uL (134-434); RBC 3.07 M/mm3 (4.00-5.60); RDW 17.4 % (11.9-15.9); WHITE BLOOD COUNT 3.7 K/mm3 (4.0-10.0)
[2024-01-02] MEDS ORDERED: LORazepam 0.5 MG TABLET PO PRN
[2024-01-02] MEDS: LACTATED RINGERS SOLUTION 1,000 ML/1,000 ML INFUS.BAG IV SCH ×2 (02:58→20:41)
[2024-01-02] MEDS ORDERED: LORazepam 0.5 MG TABLET PO SCH (05:00)
[2024-01-02] MEDS ORDERED: PANTOPRAZOLE SODIUM 160 MG in SODIUM CHLORIDE 290 ML IVPB SCH (07:00)
[2024-01-02 07:25] LABS: HEMATOCRIT 26.6 % (35.4-49); HEMOGLOBIN 8.7 GM/dL (11.7-16.9); MCH 29.3 pg (25.7-33.7); MCHC 32.6 g/dl (32.0-35.9); MEAN CELL VOLUME 89.8 fl (80-96); MEAN PLT VOLUME 9.6 fl (7.5-11.1); PLATELET COUNT 76 10^3/uL (134-434); RBC 2.96 M/mm3 (4.00-5.60); RDW 17.3 % (11.9-15.9); WHITE BLOOD COUNT 4.4 K/mm3 (4.0-10.0)
[2024-01-02 07:51] LABS: POTASSIUM 4.5 mmol/L (3.5-5.1)
[2024-01-02 08:01] LABS: ALBUMIN 2.6 g/dl (3.4-5.0); BLOOD UREA NITROGEN 10.5 mg/dL (7-18); CALCIUM 7.6 mg/dL (8.5-10.1); MAGNESIUM 2.2 mg/dL (1.8-2.4)
[2024-01-02 08:04] LABS: BILIRUBIN,DIRECT 0.4 mg/dL (0.0-0.2); CREATININE 0.5 mg/dL (0.55-1.3)
[2024-01-02 08:06] LABS: TOT PROT 5.6 g/dl (6.4-8.2)
[2024-01-02] MEDS: THIAMINE HCL 200 MG/2 ML VIAL IVPB SCH (09:30)
[2024-01-02] MEDS: PANTOPRAZOLE SODIUM 40 MG VIAL IVPUSH SCH (09:30)
[2024-01-02] MEDS: FOLIC ACID 1 MG TABLET (FP) PO SCH (09:31)
[2024-01-02] MEDS ORDERED: THIAMINE HCL 100 MG TABLET (FP) PO SCH (10:00)
[2024-01-02] MEDS ORDERED: CEFTRIAXONE 1 GM in DEXTROSE 5%-WATER - 50 ML IVPB SCH (10:00)
[2024-01-02 16:27] LABS: BASO % 0.2 % (0-2.0); HEMATOCRIT 26.9 % (35.4-49); LYMPH % 15.8 % (8-40); MCH 29.5 pg (25.7-33.7); MCHC 33.4 g/dl (32.0-35.9); MEAN CELL VOLUME 88.5 fl (80-96); MEAN PLT VOLUME 9.4 fl (7.5-11.1); PLATELET COUNT 79 10^3/uL (134-434); RBC 3.04 M/mm3 (4.00-5.60); RDW 17.5 % (11.9-15.9)
[2024-01-02] MEDS ORDERED: OCTREOTIDE ACETATE 200 MCG, OCTREOTIDE ACETATE 1,000 MCG in DEXTROSE 5%-WATER - 496 ML IVPB SCH (22:49)
[2024-01-03] MEDS: ACETAMINOPHEN 1000 MG/100 ML BAG IVPB ONE (01:32)
[2024-01-03] MEDS: MEROPENEM 1 GM in DEXTROSE 5%-WATER 100 ML IVPB SCH (01:34)
[2024-01-03] MEDS ORDERED: MEROPENEM 1 GM in DEXTROSE 5%-WATER 100 ML IVPB SCH (02:00)
[2024-01-03] MEDS ORDERED: LORazepam 0.5 MG TABLET PO ONE (05:00)
[2024-01-03 09:05] VITALS: BP 111/64; PULSE 60; RESP 18; TEMP 98.7
[2024-01-03] MEDS: FOLIC ACID 1 MG TABLET (FP) PO SCH (09:24)
[2024-01-03] MEDS: THIAMINE HCL 200 MG/2 ML VIAL IVPB SCH (09:24)
[2024-01-03] MEDS: PANTOPRAZOLE SODIUM 40 MG VIAL IVPUSH SCH (09:24)
[2024-01-03] MEDS ORDERED: MUPIROCIN 2% TOPICAL OINTMENT FOR DECOLONIZATION NS SCH (10:00)
[2024-01-03 10:34] LABS: BASO % 0.3 % (0-2.0); EOS % 0.6 % (0-4.5); HEMATOCRIT 26.6 % (35.4-49); HEMOGLOBIN 8.7 GM/dL (11.7-16.9); LYMPH % 31.4 % (8-40); MCH 29.6 pg (25.7-33.7); MCHC 32.7 g/dl (32.0-35.9); MEAN CELL VOLUME 90.3 fl (80-96); MEAN PLT VOLUME 9.6 fl (7.5-11.1); MONO % 11.2 % (3.8-10.2); NEUT % 56.5 % (42.8-82.8); PLATELET COUNT 77 10^3/uL (134-434); RBC 2.95 M/mm3 (4.00-5.60); RDW 17.2 % (11.9-15.9)
[2024-01-03] MEDS ORDERED: CHLORHEXIDINE GLUCONATE 4% CLEANSER FOR DECOLONIZATION TP SCH (22:00)
== END 2024-01-03 12:40 | disposition short-term general hospital (02) | DRG 242 ==
LOC: JER 23:12 → JERBED 12-31 02:51 → J5S 12-31 19:50 → JICU 01-01 12:21 → J5S 01-02 21:15
PROVIDERS: ADMIT Internal Medicine; ATTEND Internal Medicine
PROC: 30233N1 Transfusion of Nonautologous Red Blood Cells into Peripheral Vein, Percutaneous Approach (ICD-10-PCS; 2023-12-31)
PROC: HZ2ZZZZ Detoxification Services for Substance Abuse Treatment (ICD-10-PCS; 2023-12-31)
PROC: 0DJ08ZZ Inspection of Upper Intestinal Tract, Via Natural or Artificial Opening Endoscopic (ICD-10-PCS; 2024-01-01)
PROC: 06L38CZ Occlusion of Esophageal Vein with Extraluminal Device, Via Natural or Artificial Opening Endoscopic (ICD-10-PCS; principal; 2024-01-01 11:15)
DX: I85.01 Esophageal varices with bleeding (principal); K21.9 Gastro-esophageal reflux disease without esophagitis; D69.6 Thrombocytopenia, unspecified; K80.00 Calculus of gallbladder with acute cholecystitis without obstruction; K57.90 Diverticulosis of intestine, part unspecified, without perforation or abscess without bleeding; K70.30 Alcoholic cirrhosis of liver without ascites; K92.0 Hematemesis; F10.10 Alcohol abuse, uncomplicated; K62.5 Hemorrhage of anus and rectum; D62 Acute posthemorrhagic anemia; F19.10 Other psychoactive substance abuse, uncomplicated; K76.6 Portal hypertension; F14.10 Cocaine abuse, uncomplicated; F11.10 Opioid abuse, uncomplicated; F12.10 Cannabis abuse, uncomplicated; K44.9 Diaphragmatic hernia without obstruction or gangrene; I95.81 Postprocedural hypotension
CPT/HCPCS: 0241U-QW; 36415; 36430; 71045-TC-FY; 74177-TC; 76705-TC; 80048; 80053; 80076; 80307; 81003; 82140; 82248; 82550; 82553; 82728; 83540; 83550; 83605; 83690; 83735; 84100; 84466; 85025; 85027; 85610; 85730; 86850; 86900; 86901; 86922; 87040; 93005; 93010; 94002; 94760; 99291; J0131; P9038; P9058

== ENCOUNTER 2024-09-04 18:02 | Inpatient (IN) | payer OTHER ==
[2024-09-04] MEDS ORDERED: PANTOPRAZOLE SODIUM 40 MG VIAL ONE (18:47)
[2024-09-04] MEDS ORDERED: CEFTRIAXONE 1 GM/50 ML BAG ONE (18:47)
[2024-09-04] MEDS ORDERED: OCTREOTIDE ACETATE 500 MCG/1 ML - 1 ML VIAL ONE (18:48)
[2024-09-04] MEDS ORDERED: ACETAMINOPHEN INJECTION 100 ML ONE (18:48)
[2024-09-04] MEDS: PANTOPRAZOLE SODIUM 40 MG VIAL IVPUSH ONE (18:56)
[2024-09-04] MEDS: CEFTRIAXONE 1,000 MG in DEXTROSE 5%-WATER - 50 ML IVPB ONE (18:56)
[2024-09-04] MEDS: OCTREOTIDE ACETATE 50 MCG/1 ML - 1 ML VIAL IVPUSH ONE (18:56)
[2024-09-04] MEDS: ACETAMINOPHEN 1000 MG/100 ML BAG IVPB ONE (18:56)
[2024-09-04 18:58] LABS: RETICULOCYTES 0.92 % (0.5-1.5)
[2024-09-04 19:06] LABS: INR 1.16 (0.83-1.09); PROTHROMBIN TIME (PATIENT) 13.3 SEC (9.7-13.0)
[2024-09-04 19:08] LABS: ACTIVATED PTT 35.2 SECONDS (25.2-36.5)
[2024-09-04 19:18] LABS: HEMATOCRIT 31.6 % (35.4-49); HEMOGLOBIN 10.4 GM/dL (11.7-16.9); MCH 27.4 pg (25.7-33.7); MEAN CELL VOLUME 83.1 fl (80-96); MEAN PLT VOLUME 8.6 fl (7.5-11.1); PLATELET COUNT 110 10^3/uL (134-434); RDW 19.4 % (11.9-15.9)
[2024-09-04 19:26] LABS: BLOOD UREA NITROGEN 7.5 mg/dL (7-18); CALCIUM 8.1 mg/dL (8.5-10.1)
[2024-09-04 19:27] LABS: ALBUMIN 2.9 g/dl (3.4-5.0); MAGNESIUM 1.6 mg/dL (1.8-2.4)
[2024-09-04 19:30] LABS: CREATININE 0.6 mg/dL (0.55-1.3)
[2024-09-04 19:32] LABS: BILIRUBIN,TOTAL 0.9 mg/dL (0.2-1); TOT PROT 5.8 g/dl (6.4-8.2)
[2024-09-04 19:33] LABS: POTASSIUM 3.5 mmol/L (3.5-5.1)
[2024-09-04] MEDS ORDERED: ONDANSETRON 4 MG/2 ML VIAL ONE (19:43)
[2024-09-04] MEDS ORDERED: morphine SULFATE 4 MG/ML VIAL ONE (19:43)
[2024-09-04] MEDS: morphine CARPU-JECT 4 MG/1 ML DISP.SYRIN IVPUSH ONE (19:53)
[2024-09-04] MEDS: ONDANSETRON 4 MG/2 ML VIAL IVPUSH ONE (19:53)
[2024-09-04] MEDS ORDERED: MAGNESIUM 1GM/D5W - 1 GM/100 ML IVPB IVPB ONE (20:11)
[2024-09-04] MEDS: MAGNESIUM SULF 50% (8.12 MEQ/2 ML-1 GM VIAL) IVPB ONE (20:19)
[2024-09-04 20:24] LABS: HIV INTERPRETATION NEGATIVE (NEGATIVE)
[2024-09-05] MEDS ORDERED: MAGNESIUM SULFATE IN WATER 2 GM/50 ML IVPB IVPB ONE (00:09)
[2024-09-05] MEDS: MAGNESIUM SULF 50% (8.12 MEQ/2 ML-1 GM VIAL) IVPB ONE (00:13)
[2024-09-05] MEDS ORDERED: LORazepam 2 MG/ML SDV VIAL IVPUSH PRN (06:10)
[2024-09-05 06:56] LABS: PH,URINE 6.5 (5.0-8.0); URINE APPEARANCE CLEAR; URINE BILIRUBIN NEGATIVE (NEGATIVE); URINE COLOR DK YELLOW; URINE GLUCOSE (UA) NEGATIVE (NEGATIVE); URINE KETONE 1+ (NEGATIVE); URINE LEUK ESTERASE NEGATIVE (NEGATIVE); URINE NITRITE NEGATIVE (NEGATIVE); URINE PROTEIN NEGATIVE (NEGATIVE)
[2024-09-05 09:57] LABS: BASO % 0.3 % (0-2.0); HEMATOCRIT 29.5 % (35.4-49); HEMOGLOBIN 9.7 GM/dL (11.7-16.9); LYMPH % 30.9 % (8-40); MCH 27.8 pg (25.7-33.7); MCHC 32.9 g/dl (32.0-35.9); MEAN CELL VOLUME 84.7 fl (80-96); MEAN PLT VOLUME 8.5 fl (7.5-11.1); MONO % 7.5 % (3.8-10.2); NEUT % 60.3 % (42.8-82.8); PLATELET COUNT 105 10^3/uL (134-434); RBC 3.48 M/mm3 (4.00-5.60); WHITE BLOOD COUNT 5.1 K/mm3 (4.0-10.0)
[2024-09-05] MEDS: FOLIC ACID 1 MG TABLET (FP) PO SCH ×2 (10:02→13:04)
[2024-09-05] MEDS: SODIUM CHLORIDE 1,000 ML IV SCH (10:02)
[2024-09-05] MEDS: PANTOPRAZOLE 40 MG TABLET PO SCH (10:02)
[2024-09-05] MEDS: THIAMINE HCL 200 MG/2 ML VIAL IVPB SCH (10:03)
[2024-09-05 10:09] LABS: POTASSIUM 3.6 mmol/L (3.5-5.1)
[2024-09-05 10:11] LABS: ALBUMIN 2.6 g/dl (3.4-5.0); CALCIUM 7.2 mg/dL (8.5-10.1)
[2024-09-05 10:12] LABS: BLOOD UREA NITROGEN 8.2 mg/dL (7-18); MAGNESIUM 1.7 mg/dL (1.8-2.4)
[2024-09-05 10:15] LABS: CREATININE 0.6 mg/dL (0.55-1.3)
[2024-09-05 10:16] LABS: BILIRUBIN,TOTAL 1.2 mg/dL (0.2-1); TOT PROT 5.5 g/dl (6.4-8.2)
[2024-09-05] MEDS: ACETAMINOPHEN 1000 MG/100 ML BAG IVPB ONE (10:16)
[2024-09-05] MEDS ORDERED: LORazepam 1 MG TABLET PO PRN (10:35)
[2024-09-05] MEDS: LORazepam 1 MG TABLET PO SCH (12:08)
[2024-09-05] MEDS: PANTOPRAZOLE SODIUM 40 MG VIAL IVPUSH SCH (12:09)
[2024-09-05] MEDS: THIAMINE 100 MG TABLET PO SCH (13:03)
[2024-09-05] MEDS: OCTREOTIDE ACETATE 200 MCG, OCTREOTIDE ACETATE 1,000 MCG in DEXTROSE 5%-WATER - 496 ML IVPB SCH (15:00)
[2024-09-05] MEDS: OCTREOTIDE ACETATE 50 MCG/1 ML - 1 ML VIAL IVPUSH ONE (15:22)
[2024-09-06 09:36] LABS: BASO % 0.7 % (0-2.0); EOS % 1.3 % (0-4.5); HEMATOCRIT 32.6 % (35.4-49); HEMOGLOBIN 10.7 GM/dL (11.7-16.9); LYMPH % 31.3 % (8-40); MCH 27.7 pg (25.7-33.7); MCHC 32.8 g/dl (32.0-35.9); MEAN CELL VOLUME 84.5 fl (80-96); MEAN PLT VOLUME 8.8 fl (7.5-11.1); MONO % 7.2 % (3.8-10.2); NEUT % 59.5 % (42.8-82.8); PLATELET COUNT 107 10^3/uL (134-434); RBC 3.86 M/mm3 (4.00-5.60); RDW 18.6 % (11.9-15.9); WHITE BLOOD COUNT 3.2 K/mm3 (4.0-10.0)
[2024-09-06 10:04] LABS: CHLORIDE 108 mmol/L (98-107); POTASSIUM 4.1 mmol/L (3.5-5.1); SODIUM 140 mmol/L (136-145)
[2024-09-06 10:14] LABS: ALBUMIN 2.7 g/dl (3.4-5.0); ANION GAP 3 mmol/L (4-13); BLOOD UREA NITROGEN 5.3 mg/dL (7-18); CALCIUM 8.1 mg/dL (8.5-10.1); CO2 28 mmol/L (21-32); GLUCOSE,RANDOM 96 mg/dL (74-106); MAGNESIUM 1.7 mg/dL (1.8-2.4)
[2024-09-06 10:15] LABS: SGOT/AST 103 U/L (15-37)
[2024-09-06 10:18] LABS: ALK PHOS 186 U/L (45-117); CREATININE 0.6 mg/dL (0.55-1.3); TOT PROT 5.8 g/dl (6.4-8.2)
[2024-09-06 11:16] LABS: SGPT/ALT 58 U/L (13-61)
[2024-09-06 14:54] LABS: GAMMA GLUTAMYL TRANSPEPTIDASE 310 U/L (5-85)
[2024-09-06 14:57] LABS: BILIRUBIN,DIRECT 0.7 mg/dL (0.0-0.2)
[2024-09-06 15:04] VITALS: BMI 31.4
[2024-09-06] MEDS: ACETAMINOPHEN 325 MG TABLET (FP) PO PRN (16:49)
[2024-09-07] MEDS: LORazepam 1 MG TABLET PO SCH (05:45)
[2024-09-07 09:03] LABS: INR 1.49 (0.83-1.09); PROTHROMBIN TIME (PATIENT) 16.6 SEC (9.7-13.0)
[2024-09-07 09:05] LABS: BASO % 0.3 % (0-2.0); EOS % 2.1 % (0-4.5); HEMATOCRIT 30.8 % (35.4-49); HEMOGLOBIN 10.5 GM/dL (11.7-16.9); LYMPH % 19.8 % (8-40); MCHC 34.3 g/dl (32.0-35.9); MEAN CELL VOLUME 84.6 fl (80-96); MEAN PLT VOLUME 8.7 fl (7.5-11.1); MONO % 7.2 % (3.8-10.2); NEUT % 70.6 % (42.8-82.8); PLATELET COUNT 100 10^3/uL (134-434); RBC 3.64 M/mm3 (4.00-5.60); RDW 18.7 % (11.9-15.9); WHITE BLOOD COUNT 5.1 K/mm3 (4.0-10.0)
[2024-09-07 09:19] LABS: POTASSIUM 3.8 mmol/L (3.5-5.1)
[2024-09-07 09:23] LABS: CALCIUM 7.8 mg/dL (8.5-10.1)
[2024-09-07 09:24] LABS: ALBUMIN 2.6 g/dl (3.4-5.0); MAGNESIUM 1.6 mg/dL (1.8-2.4)
[2024-09-07 09:27] LABS: CREATININE 0.5 mg/dL (0.55-1.3)
[2024-09-07 09:28] LABS: BILIRUBIN,TOTAL 2.2 mg/dL (0.2-1); TOT PROT 5.6 g/dl (6.4-8.2)
[2024-09-07] MEDS: CEFTRIAXONE 1 G/50 ML PREMIX 50 ML IVPB SCH (14:05)
[2024-09-07] MEDS: OCTREOTIDE ACETATE 200 MCG, OCTREOTIDE ACETATE 1,000 MCG in DEXTROSE 5%-WATER - 496 ML IVPB SCH (14:09)
[2024-09-07] MEDS: PHYTONADIONE 10 MG/1 ML AMP IVPB ONE ×2 (15:17→15:18)
[2024-09-08] MEDS ORDERED: LORazepam 0.5 MG TABLET PO PRN
[2024-09-08] MEDS: LORazepam 0.5 MG TABLET PO SCH (05:59)
[2024-09-08 09:35] LABS: INR 1.37 (0.83-1.09); PROTHROMBIN TIME (PATIENT) 15.6 SEC (9.7-13.0)
[2024-09-08 09:41] LABS: BASO % 0.3 % (0-2.0); EOS % 3.9 % (0-4.5); HEMATOCRIT 33.6 % (35.4-49); LYMPH % 33.5 % (8-40); MCH 27.9 pg (25.7-33.7); MCHC 32.6 g/dl (32.0-35.9); MEAN CELL VOLUME 85.6 fl (80-96); MEAN PLT VOLUME 8.5 fl (7.5-11.1); MONO % 9.6 % (3.8-10.2); NEUT % 52.7 % (42.8-82.8); PLATELET COUNT 120 10^3/uL (134-434); RBC 3.93 M/mm3 (4.00-5.60); WHITE BLOOD COUNT 4.9 K/mm3 (4.0-10.0)
[2024-09-08 09:51] LABS: POTASSIUM 3.8 mmol/L (3.5-5.1)
[2024-09-08 10:11] LABS: ALBUMIN 2.6 g/dl (3.4-5.0); BLOOD UREA NITROGEN 6.8 mg/dL (7-18)
[2024-09-08 10:13] LABS: CALCIUM 8.2 mg/dL (8.5-10.1)
[2024-09-08 10:17] LABS: BILIRUBIN,TOTAL 1.9 mg/dL (0.2-1); CREATININE 0.6 mg/dL (0.55-1.3)
[2024-09-08 10:18] LABS: TOT PROT 5.6 g/dl (6.4-8.2)
[2024-09-08] MEDS: guaiFENesin 200 MG/10 ML 10 ML UNIT-DOSE CUPS PO PRN (22:14)
[2024-09-09] MEDS: LORazepam 0.5 MG TABLET PO SCH (09:44)
[2024-09-09 10:35] LABS: BASO % 0.3 % (0-2.0); EOS % 3.2 % (0-4.5); HEMATOCRIT 36.6 % (35.4-49); HEMOGLOBIN 11.8 GM/dL (11.7-16.9); LYMPH % 38.7 % (8-40); MCH 27.8 pg (25.7-33.7); MCHC 32.1 g/dl (32.0-35.9); MEAN CELL VOLUME 86.4 fl (80-96); MEAN PLT VOLUME 8.4 fl (7.5-11.1); MONO % 11.7 % (3.8-10.2); NEUT % 46.1 % (42.8-82.8); PLATELET COUNT 140 10^3/uL (134-434); RBC 4.23 M/mm3 (4.00-5.60)
[2024-09-09 10:47] LABS: POTASSIUM 3.8 mmol/L (3.5-5.1)
[2024-09-09 10:49] LABS: CALCIUM 8.2 mg/dL (8.5-10.1)
[2024-09-09 10:50] LABS: ALBUMIN 2.8 g/dl (3.4-5.0); BLOOD UREA NITROGEN 5.3 mg/dL (7-18); MAGNESIUM 1.8 mg/dL (1.8-2.4)
[2024-09-09 10:55] LABS: BILIRUBIN,TOTAL 2.1 mg/dL (0.2-1); TOT PROT 5.9 g/dl (6.4-8.2)
[2024-09-09 11:00] LABS: CREATININE 0.5 mg/dL (0.55-1.3)
[2024-09-10 08:19] LABS: INR 1.38 (0.83-1.09); PROTHROMBIN TIME (PATIENT) 15.7 SEC (9.7-13.0)
[2024-09-10 08:48] LABS: POTASSIUM 3.9 mmol/L (3.5-5.1)
[2024-09-10 08:55] LABS: ALBUMIN 2.7 g/dl (3.4-5.0); CALCIUM 8.6 mg/dL (8.5-10.1)
[2024-09-10 08:56] LABS: BLOOD UREA NITROGEN 8.1 mg/dL (7-18); MAGNESIUM 1.7 mg/dL (1.8-2.4)
[2024-09-10 08:59] LABS: CREATININE 0.5 mg/dL (0.55-1.3)
[2024-09-10 09:00] LABS: BILIRUBIN,TOTAL 2.4 mg/dL (0.2-1)
[2024-09-10] MEDS: LORazepam 0.5 MG TABLET PO ONE (09:31)
[2024-09-10 10:56] LABS: BASO % 0.5 % (0-2.0); EOS % 3.5 % (0-4.5); HEMATOCRIT 37.9 % (35.4-49); HEMOGLOBIN 12.2 GM/dL (11.7-16.9); MCHC 32.1 g/dl (32.0-35.9); MEAN CELL VOLUME 87.2 fl (80-96); MEAN PLT VOLUME 8.2 fl (7.5-11.1); MONO % 14.2 % (3.8-10.2); NEUT % 44.8 % (42.8-82.8); PLATELET COUNT 134 10^3/uL (134-434); RBC 4.35 M/mm3 (4.00-5.60); RDW 19.6 % (11.9-15.9); WHITE BLOOD COUNT 5.6 K/mm3 (4.0-10.0)
[2024-09-10] MEDS: CEFUROXIME AXETIL 500 MG TABLET PO SCH (17:52)
[2024-09-10] MEDS: PANTOPRAZOLE 40 MG TABLET PO SCH (21:33)
[2024-09-11 07:52] LABS: BASO % 0.2 % (0-2.0); EOS % 4.3 % (0-4.5); HEMOGLOBIN 11.6 GM/dL (11.7-16.9); LYMPH % 37.6 % (8-40); MCH 28.5 pg (25.7-33.7); MCHC 33.2 g/dl (32.0-35.9); MEAN CELL VOLUME 85.8 fl (80-96); MONO % 14.3 % (3.8-10.2); NEUT % 43.6 % (42.8-82.8); PLATELET COUNT 120 10^3/uL (134-434); RBC 4.08 M/mm3 (4.00-5.60); RDW 19.3 % (11.9-15.9); WHITE BLOOD COUNT 4.7 K/mm3 (4.0-10.0)
[2024-09-11 08:08] LABS: POTASSIUM 3.9 mmol/L (3.5-5.1)
[2024-09-11 08:11] LABS: ALBUMIN 2.6 g/dl (3.4-5.0); CALCIUM 8.3 mg/dL (8.5-10.1)
[2024-09-11 08:12] LABS: BLOOD UREA NITROGEN 8.2 mg/dL (7-18); MAGNESIUM 1.8 mg/dL (1.8-2.4)
[2024-09-11 08:16] LABS: BILIRUBIN,TOTAL 1.7 mg/dL (0.2-1); TOT PROT 5.6 g/dl (6.4-8.2)
[2024-09-11 08:17] LABS: CREATININE 0.4 mg/dL (0.55-1.3)
[2024-09-11 14:39] VITALS: BP 132/78; PULSE 100; RESP 16; TEMP 98.6
== END 2024-09-11 14:39 | disposition home or self-care (01) | DRG 253 ==
LOC: JER 18:02 → JERBED 22:04 → J8W 09-05 01:45
PROVIDERS: ADMIT Internal Medicine; ATTEND Nurse Practitioner Family
PROC: 0DB98ZX Excision of Duodenum, Via Natural or Artificial Opening Endoscopic, Diagnostic (ICD-10-PCS; principal; 2024-09-10 13:00)
DX: K92.2 Gastrointestinal hemorrhage, unspecified (principal); J69.0 Pneumonitis due to inhalation of food and vomit; D69.6 Thrombocytopenia, unspecified; K70.30 Alcoholic cirrhosis of liver without ascites; E83.42 Hypomagnesemia; D64.9 Anemia, unspecified; F10.20 Alcohol dependence, uncomplicated; F12.90 Cannabis use, unspecified, uncomplicated; K70.9 Alcoholic liver disease, unspecified; K44.9 Diaphragmatic hernia without obstruction or gangrene
CPT/HCPCS: 0241U-QW; 36415; 71045-TC-FY; 74177-TC; 74181-TC; 76700-TC; 80053; 81003; 82248; 82550; 82553; 82728; 82977; 83010; 83540; 83550; 83615; 83690; 83735; 85025; 85027; 85045; 85610; 85730; 86704; 86803; 86850; 86900; 86901; 87040; 87086; 87340; 87389; 87517; 88305-TC; 93005; 93010; 93975; 97116-GP; 97161-GP; 99285-25; J0131; Q9967

== ENCOUNTER 2024-09-27 16:53 | Inpatient (IN) | payer OTHER ==
[2024-09-27 17:10] VITALS: BMI 34.0
[2024-09-27 18:35] LABS: BASO % 0.4 % (0-2.0); EOS % 0.4 % (0-4.5); HEMATOCRIT 32.6 % (35.4-49); HEMOGLOBIN 10.6 GM/dL (11.7-16.9); LYMPH % 39.9 % (8-40); MCH 27.9 pg (25.7-33.7); MCHC 32.6 g/dl (32.0-35.9); MEAN CELL VOLUME 85.7 fl (80-96); MEAN PLT VOLUME 8.3 fl (7.5-11.1); MONO % 8.4 % (3.8-10.2); NEUT % 50.9 % (42.8-82.8); PH,URINE 6.5 (5.0-8.0); PLATELET COUNT 162 10^3/uL (134-434); RDW 19.2 % (11.9-15.9); URINE APPEARANCE CLEAR; URINE BILIRUBIN NEGATIVE (NEGATIVE); URINE COLOR YELLOW; URINE GLUCOSE (UA) NEGATIVE (NEGATIVE); URINE KETONE NEGATIVE (NEGATIVE); URINE LEUK ESTERASE NEGATIVE (NEGATIVE); URINE NITRITE NEGATIVE (NEGATIVE); URINE PROTEIN NEGATIVE (NEGATIVE); URINE UROBILINOGEN 0.2 mg/dL (0.2-1.0); WHITE BLOOD COUNT 4.6 K/mm3 (4.0-10.0)
[2024-09-27] MEDS ORDERED: PANTOPRAZOLE SODIUM 40 MG VIAL ONE (18:44)
[2024-09-27] MEDS ORDERED: CEFTRIAXONE 1 G/50 ML PREMIX 50 ML IVPB ONE (18:44)
[2024-09-27] MEDS ORDERED: ACETAMINOPHEN INJECTION 100 ML ONE (18:44)
[2024-09-27] MEDS ORDERED: OCTREOTIDE ACETATE 100 MCG/1 ML ONE (18:45)
[2024-09-27 18:49] LABS: INR 1.2 (0.83-1.09); PROTHROMBIN TIME (PATIENT) 13.5 SEC (9.7-13.0)
[2024-09-27 18:52] LABS: ACTIVATED PTT 35.8 SECONDS (25.2-36.5)
[2024-09-27 18:54] LABS: POTASSIUM 3.7 mmol/L (3.5-5.1)
[2024-09-27 18:57] LABS: CALCIUM 8.5 mg/dL (8.5-10.1)
[2024-09-27 18:58] LABS: BLOOD UREA NITROGEN 6.5 mg/dL (7-18); MAGNESIUM 1.9 mg/dL (1.8-2.4)
[2024-09-27 19:00] LABS: CREATININE 0.5 mg/dL (0.55-1.3); PHOSPHOROUS 3.3 mg/dL (2.5-4.9)
[2024-09-27 19:01] LABS: BILIRUBIN,TOTAL 1.3 mg/dL (0.2-1); TOT PROT 6.4 g/dl (6.4-8.2)
[2024-09-27] MEDS: OCTREOTIDE ACETATE 50 MCG/1 ML - 1 ML VIAL IVPUSH ONE (19:05)
[2024-09-27] MEDS: PANTOPRAZOLE SODIUM 40 MG VIAL IVPUSH ONE ×2 (19:05→19:18)
[2024-09-27] MEDS: SODIUM CHLORIDE 0.9% 500 ML INFUS.BAG IV ONE ×2 (19:06→21:47)
[2024-09-27] MEDS: ACETAMINOPHEN 1000 MG/100 ML BAG IVPB ONE (19:06)
[2024-09-27 19:37] LABS: HIV INTERPRETATION NEGATIVE (NEGATIVE)
[2024-09-27] MEDS: CEFTRIAXONE 1 GM in DEXTROSE 5%-WATER - 100 ML IVPB ONE (19:38)
[2024-09-27 21:56] LABS: LACTIC ACID 2.6 mmol/L (0.4-2.0)
[2024-09-27 23:00] LABS: BASO % 0.4 % (0-2.0); EOS % 1.1 % (0-4.5); HEMATOCRIT 30.1 % (35.4-49); HEMOGLOBIN 9.8 GM/dL (11.7-16.9); LYMPH % 37.3 % (8-40); MCH 27.8 pg (25.7-33.7); MCHC 32.5 g/dl (32.0-35.9); MEAN CELL VOLUME 85.6 fl (80-96); MONO % 10.5 % (3.8-10.2); NEUT % 50.7 % (42.8-82.8); PLATELET COUNT 137 10^3/uL (134-434); RBC 3.52 M/mm3 (4.00-5.60); RDW 19.1 % (11.9-15.9); WHITE BLOOD COUNT 3.1 K/mm3 (4.0-10.0)
[2024-09-27] MEDS: SODIUM CHLORIDE 1,000 ML IV STA ×2 (23:33→23:38)
[2024-09-28] MEDS: SODIUM CHLORIDE 1,000 ML IV SCH (00:16)
[2024-09-28] MEDS: OCTREOTIDE ACETATE 200 MCG, OCTREOTIDE ACETATE 1,000 MCG in DEXTROSE 5%-WATER - 496 ML IVPB SCH (00:38)
[2024-09-28 01:36] LABS: COCAINE, UR NEGATIVE (NEGATIVE); METHADONE, UR NEGATIVE (NEGATIVE); OPIATES, URI NEGATIVE (NEGATIVE); PHENCYCLIDINE,URINE NEGATIVE (NEGATIVE); URINE AMPHETAMINES NEGATIVE (NEGATIVE); URINE BARBITURATES NEGATIVE (NEGATIVE); URINE BENZODIAZEPINES NEGATIVE (NEGATIVE)
[2024-09-28] MEDS ORDERED: PANTOPRAZOLE 40 MG TABLET PO ONE (05:01)
[2024-09-28] MEDS: PANTOPRAZOLE 40 MG TABLET PO SCH (05:06)
[2024-09-28 05:19] LABS: BASO % 0.4 % (0-2.0); EOS % 2.1 % (0-4.5); HEMATOCRIT 29.6 % (35.4-49); HEMOGLOBIN 9.6 GM/dL (11.7-16.9); LYMPH % 47.3 % (8-40); MCHC 32.2 g/dl (32.0-35.9); MEAN CELL VOLUME 86.9 fl (80-96); MEAN PLT VOLUME 9.1 fl (7.5-11.1); MONO % 11.3 % (3.8-10.2); NEUT % 38.9 % (42.8-82.8); PLATELET COUNT 126 10^3/uL (134-434); RBC 3.41 M/mm3 (4.00-5.60); RDW 19.2 % (11.9-15.9); WHITE BLOOD COUNT 3.2 K/mm3 (4.0-10.0)
[2024-09-28] MEDS: SODIUM CHLORIDE 1,000 ML IV STA (06:05)
[2024-09-28 06:36] LABS: POTASSIUM 3.8 mmol/L (3.5-5.1)
[2024-09-28 06:37] LABS: CALCIUM 7.7 mg/dL (8.5-10.1)
[2024-09-28 06:38] LABS: ALBUMIN 2.6 g/dl (3.4-5.0); BLOOD UREA NITROGEN 4.1 mg/dL (7-18); MAGNESIUM 1.8 mg/dL (1.8-2.4)
[2024-09-28 06:41] LABS: CREATININE 0.5 mg/dL (0.55-1.3); PHOSPHOROUS 3.8 mg/dL (2.5-4.9)
[2024-09-28 06:42] LABS: TOT PROT 5.5 g/dl (6.4-8.2)
[2024-09-28 07:03] LABS: BILIRUBIN,TOTAL 1.4 mg/dL (0.2-1)
[2024-09-28] MEDS ORDERED: CEFTRIAXONE 1 G/50 ML PREMIX 50 ML IVPB ONE (10:10)
[2024-09-28] MEDS: CEFTRIAXONE 1 G/50 ML PREMIX 50 ML IVPB SCH (10:17)
[2024-09-28 10:57] LABS: BASO % 0.4 % (0-2.0); EOS % 2.3 % (0-4.5); HEMATOCRIT 30.3 % (35.4-49); LYMPH % 33.3 % (8-40); MCH 28.3 pg (25.7-33.7); MEAN CELL VOLUME 85.8 fl (80-96); MEAN PLT VOLUME 8.3 fl (7.5-11.1); MONO % 13.3 % (3.8-10.2); NEUT % 50.7 % (42.8-82.8); PLATELET COUNT 126 10^3/uL (134-434); RBC 3.53 M/mm3 (4.00-5.60); RDW 18.8 % (11.9-15.9); WHITE BLOOD COUNT 2.6 K/mm3 (4.0-10.0)
[2024-09-28] MEDS ORDERED: LORazepam 1 MG TABLET PO PRN ×2 (11:48→12:04)
[2024-09-28] MEDS ORDERED: METOCLOPRAMIDE HCL INJECTION 10 MG/2 ML VIAL IVPUSH PRN (11:54)
[2024-09-28] MEDS: LORazepam 2 MG/ML SDV VIAL IVPUSH ONE ×2 (12:02→12:27)
[2024-09-28] MEDS: LORazepam 2 MG TABLET PO SCH (12:27)
[2024-09-28] MEDS ORDERED: PANTOPRAZOLE SODIUM 40 MG VIAL IV SCH (17:00)
[2024-09-28] MEDS ORDERED: LORazepam 2 MG/ML SDV VIAL ONE (17:05)
[2024-09-28] MEDS ORDERED: PANTOPRAZOLE SODIUM 40 MG VIAL ONE (17:06)
[2024-09-28] MEDS ORDERED: LORazepam 1 MG TABLET ONE (17:11)
[2024-09-28] MEDS: LORazepam 1 MG TABLET PO SCH (17:19)
[2024-09-28] MEDS: PANTOPRAZOLE SODIUM 40 MG VIAL IV SCH (17:20)
[2024-09-28] MEDS: PEG 3350/NA SULF BICARB CL/KCL 4000 ML SOLN.RECON PO ONE (18:01)
[2024-09-29] MEDS ORDERED: LORazepam 1 MG TABLET ONE (00:31)
[2024-09-29 07:38] LABS: INR 1.36 (0.83-1.09); PROTHROMBIN TIME (PATIENT) 15.5 SEC (9.7-13.0)
[2024-09-29 07:47] LABS: POTASSIUM 3.5 mmol/L (3.5-5.1)
[2024-09-29 07:53] LABS: BASO % 0.4 % (0-2.0); EOS % 3.8 % (0-4.5); HEMATOCRIT 30.4 % (35.4-49); HEMOGLOBIN 9.8 GM/dL (11.7-16.9); LYMPH % 53.3 % (8-40); MCH 28.1 pg (25.7-33.7); MCHC 32.3 g/dl (32.0-35.9); MEAN CELL VOLUME 87.1 fl (80-96); MEAN PLT VOLUME 9.1 fl (7.5-11.1); MONO % 13.2 % (3.8-10.2); NEUT % 29.3 % (42.8-82.8); PLATELET COUNT 117 10^3/uL (134-434); RBC 3.49 M/mm3 (4.00-5.60); RDW 18.5 % (11.9-15.9); WHITE BLOOD COUNT 2.8 K/mm3 (4.0-10.0)
[2024-09-29 08:06] LABS: ALBUMIN 2.6 g/dl (3.4-5.0); BLOOD UREA NITROGEN 4.5 mg/dL (7-18); CALCIUM 8.2 mg/dL (8.5-10.1); MAGNESIUM 1.7 mg/dL (1.8-2.4)
[2024-09-29 08:08] LABS: CREATININE 0.4 mg/dL (0.55-1.3)
[2024-09-29 08:09] LABS: BILIRUBIN,TOTAL 1.9 mg/dL (0.2-1); PHOSPHOROUS 3.6 mg/dL (2.5-4.9); TOT PROT 5.4 g/dl (6.4-8.2)
[2024-09-29] MEDS: PANTOPRAZOLE 40 MG TABLET PO SCH (10:25)
[2024-09-29] MEDS: FOLIC ACID 1 MG TABLET (FP) PO SCH (10:25)
[2024-09-29 10:28] LABS: ANISOCYTOSIS 0; HELMET CELLS 0; HOWELL-JOLLY BODIES 0; MACROCYTOSIS 0; OVALOCYTE 0; ROULEAU 0; SICKELED CELLS 0; TARGET CELLS 0; TEAR DROP CELLS 0; TOXIC GRANULATION 0
[2024-09-29] MEDS: THIAMINE HCL 200 MG/2 ML VIAL IVPB SCH (10:37)
[2024-09-29] MEDS: MAGNESIUM OXIDE 400 MG TABLET (FP) PO ONE (12:37)
[2024-09-30] MEDS ORDERED: LORazepam 1 MG TABLET PO SCH (05:00)
[2024-09-30] MEDS: LORazepam 1 MG TABLET PO SCH (05:32)
[2024-09-30 08:40] LABS: POTASSIUM 3.5 mmol/L (3.5-5.1)
[2024-09-30 08:50] VITALS: BP 124/72; PULSE 91; RESP 18; TEMP 98.6
[2024-09-30 08:57] LABS: ALBUMIN 2.7 g/dl (3.4-5.0); BLOOD UREA NITROGEN 5.2 mg/dL (7-18); CALCIUM 8.4 mg/dL (8.5-10.1); MAGNESIUM 1.7 mg/dL (1.8-2.4)
[2024-09-30 08:59] LABS: CREATININE 0.5 mg/dL (0.55-1.3)
[2024-09-30 09:00] LABS: PHOSPHOROUS 4.4 mg/dL (2.5-4.9)
[2024-09-30 09:01] LABS: BILIRUBIN,TOTAL 1.4 mg/dL (0.2-1); TOT PROT 5.8 g/dl (6.4-8.2)
[2024-09-30 09:10] LABS: BASO % 0.3 % (0-2.0); EOS % 4.6 % (0-4.5); HEMATOCRIT 32.6 % (35.4-49); HEMOGLOBIN 11.1 GM/dL (11.7-16.9); LYMPH % 44.4 % (8-40); MCH 29.1 pg (25.7-33.7); MCHC 34.1 g/dl (32.0-35.9); MEAN CELL VOLUME 85.5 fl (80-96); MEAN PLT VOLUME 8.8 fl (7.5-11.1); MONO % 10.3 % (3.8-10.2); NEUT % 40.4 % (42.8-82.8); PLATELET COUNT 117 10^3/uL (134-434); RBC 3.81 M/mm3 (4.00-5.60); RDW 18.2 % (11.9-15.9)
[2024-09-30] MEDS: MAGNESIUM 2GM/50ML STERILE WATER IVPB IVPB ONE (12:28)
[2024-10-01] MEDS ORDERED: LORazepam 0.5 MG TABLET PO PRN ×2
[2024-10-01] MEDS ORDERED: LORazepam 0.5 MG TABLET PO SCH ×2 (05:00)
[2024-10-02] MEDS ORDERED: LORazepam 0.5 MG TABLET PO ONE ×2 (05:00)
== END 2024-09-30 15:17 | disposition other institution (70) ==
LOC: JER 16:53 → JERBED 22:05 → OBSVTOIN 09-28 17:29 → J4W 09-29 02:28
PROVIDERS: ADMIT Internal Medicine; ATTEND Allergy & Immunology
PROC: 0DJ08ZZ Inspection of Upper Intestinal Tract, Via Natural or Artificial Opening Endoscopic (ICD-10-PCS; 2024-09-29)
PROC: 0DJD8ZZ Inspection of Lower Intestinal Tract, Via Natural or Artificial Opening Endoscopic (ICD-10-PCS; principal; 2024-09-29 08:00)
DX: K76.6 Portal hypertension (principal); K92.0 Hematemesis; F10.239 Alcohol dependence with withdrawal, unspecified; K31.89 Other diseases of stomach and duodenum; K64.5 Perianal venous thrombosis; K70.30 Alcoholic cirrhosis of liver without ascites; K44.9 Diaphragmatic hernia without obstruction or gangrene
CPT/HCPCS: 36415; 71045-TC-FY; 74177-TC; 80053; 80307; 81003; 82140; 82272; 82962; 83605; 83735; 84100; 84484; 85025; 85610; 85730; 86803; 86850; 86900; 86901; 87086; 87389; 93005; 93010; 99285-25; G0378; J0131